=== PATIENT | male | born 1955 | race Caucasian/White ===

== ENCOUNTER 2018-12-31 11:55 | Inpatient (IN) | payer OTHER ==
[~2018-12-31] VITALS: Ht 167.6 cm; Wt 60.0 kg
[~2018-12-31 11:55] MED LIST: ACET325T33 PO; FOLI-49 PO; METO25TA4 PO; MULT-552 PO; THIA50TA10 PO
[2018-12-31 12:07] VITALS: Ht 167.6 cm; Wt 60.0 kg
--- NOTE | 2018-12-31 14:12 | ERD ---
ER Documentation Chief Complaint Chief Complaint Bilaterial hip x 2 months worse today can't walk. HPI 63-year-old male presents the emergency department by paramedics complaining of generalized weakness. Patient states that for the last 2 months, he has been unable to take care of himself. He was initially living on the streets but then was placed by the police into a motel. While in the motel, he states he has been unable to walk and has been crawling on the floor unable to care for himself. He does admit to drinking alcohol. He denies any other drug use. He states at this time has been too weak to even take care of himself and the paramedics were called. 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 Pre-hospital vital signs were reviewed. Pre-hospital diagnostic tests were reviewed. Upon arrival patient has no fevers or other complaints at this time. ROS All systems reviewed and are negative except as per history of present illness. Medications Home Meds Discontinued Reported Medications Acetaminophen* (Tylenol*) 325 Mg Tablet, 650 MG PO Q6 PRN for PAIN AND OR ELEVATED TEMP, TAB 15 Thiamine* (Vitamin B-1*) 50 Mg Tablet, 50 MG PO DAILY, TAB //15 Multivitamins* (Once Daily*) 1 Tab Tablet, 1 TAB PO DAILY, TAB 15 Metoprolol Tartrate* (Lopressor*) 25 Mg Tablet, 25 MG PO BID, TAB //15 Folic Acid* (Folic Acid*) 1 Mg Tablet, 1 MG PO DAILY, TAB 15 Allergies Allergies: Coded Allergies: No Known Allergy (Unverified , 12/31/18) PMhx/Soc History of Surgery: Yes (bilat hip sx left y0mvmbc/right x1mnth) Anesthesia Reaction: No Hx Neurological Disorder: Yes ("I had 3 strokes") Hx Respiratory Disorders: No Hx Cardiac Disorders: Yes (htn) Hx Psychiatric Problems: No Hx Miscellaneous Medical Probl: Yes (C spine fracture, cirrhosis of the liver) Hx Alcohol Use: Yes (beer 45min [employer]; Drinks occassionally) Hx Substance Use: No (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 Physical Exam Vitals Vital Signs Date Temp Pulse Resp B/P (MAP) Pulse Ox O2 O2 Flow FiO2 Time Delivery Rate 12/31/18 98.4 95 18 148/97 98 Room Air 13:38 (114) 12/31/18 98.4 91 18 126/86 97 12:07 (99) Physical Exam GENERAL: Disheveled male in no acute distress HEENT: Pupils equal, round, and reactive to light. EOMI. There is no scleral icterus. NECK: C-spine is soft and supple, there is no meningismus. There is no cervical lymphadenopathy. LUNGS: Clear to auscultation bilaterally. There are no rales, wheezes or rhonchi . HEART: Regular rate and rhythm, no murmurs, clicks, rubs or gallops. ABDOMEN: Soft, non-tender, non-distended. There are bowel sounds in all four quadrants. No rebound or guarding. EXTREMITIES: There is no peripheral cyanosis or edema. No focal swelling or erythema. NEURO: The patient moves all four extremities with 5/5 strength. Cranial nerves II - XII are intact. Normal gait. Alert and oriented SKIN: There is no apparent rash or petechiae. HEME/LYMPHATIC: There is no evidence of excessive bruising or lymphedema. PSYCHIATRIC: Patient appears anxious. No agitation. Result Diagram: 12/31/18 1220 12/31/18 1220 Results 24 hrs Laboratory Tests Test 12/31/18 12:20 White Blood Count 1.4 10^3/ul Red Blood Count 4.26 10^6/ul Hemoglobin 13.0 g/dl Hematocrit 38.1 % Mean Corpuscular Volume 89.4 fl Mean Corpuscular Hemoglobin 30.5 pg Mean Corpuscular Hemoglobin Concent 34.1 g/dl Red Cell Distribution Width 18.0 % Platelet Count 34 10^3/UL Mean Platelet Volume 9.7 fl Immature Granulocytes % 0.700 % Neutrophils % % Lymphocytes % % Monocytes % % Eosinophils % % Basophils % % Nucleated Red Blood Cells % 0.0 /100WBC Immature Granulocytes # 0.010 10^3/ul Neutrophils # 10^3/ul Lymphocytes # 10^3/ul Monocytes # 10^3/ul Eosinophils # 10^3/ul Basophils # 10^3/ul Nucleated Red Blood Cells # 10^3/ul Sodium Level 137 mmol/L Potassium Level 3.3 mmol/L Chloride Level 100 mmol/L Carbon Dioxide Level 26 mmol/L Anion Gap 11 Blood Urea Nitrogen 6 mg/dl Creatinine 0.51 mg/dl Est Glomerular Filtrat Rate mL/min > 60 mL/min Glucose Level 90 mg/dl Calcium Level 8.8 mg/dl Total Bilirubin 1.5 mg/dl Direct Bilirubin 0.00 mg/dl Indirect Bilirubin 1.5 mg/dl Aspartate Amino Transf (AST/SGOT) 320 IU/L Alanine Aminotransferase (ALT/SGPT) 158 IU/L Alkaline Phosphatase 118 IU/L Total Protein 6.7 g/dl Albumin 3.6 g/dl Globulin 3.10 g/dl Albumin/Globulin Ratio 1.16 Ethyl Alcohol Level 124.0 mg/dl Procedures/MDM Patient was taken to a room, seen and evaluated. Comfort measures were initia raymond. Diagnostic tests were ordered and reviewed. RADIOLOGY: Reviewed with the radiologist CONSULTATION: Hospitalist was notified for admission REEVALUATION: 1400: Patient remained hemodynamic is stable in the emergency department. MEDICAL DECISION MAKIN-year-old male presents to the emergency department with generalized weakness. His weakness seems related to chronic alcoholism and unable to care for himself. At this time, there is no snf available or fdc available for which to place the patient. As he is unable to care for himself, especially in light of his significantly comorbid conditions including his pancytopenia, his alcoholism, he will require admission to the hospital for observation, case management and placement. Departure Diagnosis: Primary Impression: ETOH abuse Additional Impression: Weakness Condition: Fair HERMESSHANE Dec 31, 2018 14:12
--- NOTE | 2018-12-31 15:28 | HP ---
Date/Time of Note Date/Time of Note DATE: 12/31/18 TIME: 15:28 Assessment/Plan VTE Prophylaxis Pharmacological prophylaxis: NA/contraindicated Pharm contraindication: liver dx, thrombocytopenia Lines/Catheters [facility] Saline Lock Assessment/Plan Hospital Course 63-year-old male with comorbidities including hypertension, alcoholism, chronic back pain, chronic bilateral hip pain, and nicotine use. The patient was brought in by paramedics from the streets because of difficulty in ambulation. The patient will be admitted to inpatient setting for further treatment and evaluation. 1. Chronic back and bilateral lower extremity pain with difficulty in ambulation -Provide adequate pain control. -Obtain physical therapy evaluation. -Fall precautions. 2. Hypertension. -Start antihypertensives. 3. Pancytopenia. -Most probably secondary to underlying liver cirrhosis from alcoholic liver disease. 4. Transaminitis with hyperbilirubinemia. -Most probably secondary to underlying alcoholic liver cirrhosis. -Obtain hepatitis panel. 5. Failure to thrive. -Obtain physical therapy evaluation. -merchandise worker evaluation. 6. Alcohol intoxication. -Start the patient on multivitamins. -Will start the patient on scheduled Librium along with as needed IV Ativan for any active DTs. 7. Nicotine use. -Smokes 5 cigarettes/day. -Cessation advised. 8. Homelessness. -merchandise worker evaluation. Plan: The patient will be admitted to inpatient medical surgical floor. The patient will be started on a regular diet. The patient will be started on DVT prophylaxis (B/L SCDs) . The patient will remain a full code. Activities will be with assist. The rest of the patient's management will be based on the clinical course and the results of diagnostic studies. Based on the patient's clinical presentation, he most probably requires at least 2 midnights' stay for further management and evaluation of his clinical presentation. The patient was seen in collaboration with Dr. Negron. Result Diagram: 12/31/18 1220 12/31/18 1220 Results 24hrs Laboratory Tests Test 12/31/18 12:20 White Blood Count 1.4 #L Red Blood Count 4.26 L Hemoglobin 13.0 L Hematocrit 38.1 L Mean Corpuscular Volume 89.4 Mean Corpuscular Hemoglobin 30.5 Mean Corpuscular Hemoglobin Concent 34.1 Red Cell Distribution Width 18.0 H Platelet Count 34 L Mean Platelet Volume 9.7 Immature Granulocytes % 0.700 H Neutrophils % Segmented Neutrophils % (Manual) 36 L Band Neutrophils % (Manual) 3 Lymphocytes % Lymphocytes % (Manual) 40 Reactive Lymphocytes % (Manual) 5 H Monocytes % Monocytes % (Manual) 10 Eosinophils % Eosinophils % (Manual) 5 Basophils % Myelocytes % (Manual) 1 H Nucleated Red Blood Cells % 0.0 Immature Granulocytes # 0.010 Neutrophils # Neutrophils # (Manual) 0.5 L Band Neutrophils # 0.0 Lymphocytes (Manual) 0.5 L Lymphocytes # Reactive Lymphocytes # 0.0 Monocytes # Monocytes # (Manual) 0.1 L Eosinophils # Basophils # Myelocytes # 0.0 Nucleated Red Blood Cells # Platelet Estimate SIG DECREASED Polychromasia 1+ Poikilocytosis 2+ Anisocytosis 2+ Ovalocytes 1+ Sodium Level 137 Potassium Level 3.3 L Chloride Level 100 Carbon Dioxide Level 26 Anion Gap 11 Blood Urea Nitrogen 6 L Creatinine 0.51 L Est Glomerular Filtrat Rate mL/min > 60 Glucose Level 90 Calcium Level 8.8 Total Bilirubin 1.5 H Direct Bilirubin 0.00 Indirect Bilirubin 1.5 H Aspartate Amino Transf (AST/SGOT) 320 H Alanine Aminotransferase (ALT/SGPT) 158 H Alkaline Phosphatase 118 Total Protein 6.7 Albumin 3.6 Globulin 3.10 Albumin/Globulin Ratio 1.16 Ethyl Alcohol Level 124.0 H HPI/ROS Admit Date/Time Admit Date/Time Hx of Present Illness Reason for admission: Brought in by paramedics because of bilateral hip pain that is getting worse and inability to walk. This is a 63-year-old male with past medical history of hypertension currently not taking any antihypertensives. The patient verbalized that [id number] to [facility]. He went out of the [id number] to have some food and he lost his way to return back to the [facility]. He kept on walking to go to the nearest emergency room. However, he cannot make it. Therefore, he called the paramedics to bring him to the nearest emergency room. The patient was recently living in a motel for the past 4 days and he ran out of his money. Therefore, he was not eating anything recently. However, he managed to drink 1 can of beer on 12/31/2018. The patient was complaining of rashes on his back and upper chest wall with itching to the rash on the back. The patient denied any fevers, chills, nausea, vomiting, abdominal pain, diarrhea, hematuria, hematochezia, melena. In the emergency room, the patient had a needle alcohol of 124. He also had underlying transaminitis with hyperbi lirubinemia. He was noticed to have underlying pancytopenia. ROS Constitutional: no complaints Eyes: no complaints ENT: no complaints Respiratory: no complaints Cardiovascular: no complaints Gastrointestinal: no complaints Genitourinary: no complaints Musculoskeletal: back pain, bone/joint pain (B/L hip) Skin: rash Neurologic: no complaints Endocrine: no complaints Lymphatic: no complaints Psychological: no complaints Immunologic: no complaints PMH/Family/Social Past Medical History 1. Hypertension. 2. Alcoholism. 3. Chronic back pain. 4. Nicotine use. Coded Allergies: No Known Allergy (Unverified , 12/31/18) Past Surgical History 1. Bilateral hip surgery. 2. Hernia repair. 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 The patient is currently homeless. Alcohol Use: heavy Smoking Status: Current every day smoker Drug Use: none, other (More history of amphetamine abuse.) Exam/Review of Systems Vital Signs Vitals Vital Signs Date Temp Pulse Resp B/P (MAP) Pulse Ox O2 O2 Flow FiO2 Time Delivery Rate 12/31/18 98.4 95 18 148/97 98 Room Air 13:38 (114) Exam Exam General: Adequately build 63 year-old male lying in bed in no apparent distress. HEENT: Normocephalic, atraumatic. Eyes: Anicteric sclerae, conjunctivae red. ENT: Nasal septum midline, oral mucosa moist. Neck supple, no JVD noticed. Respiratory: Bilaterally diminished breath sounds. No use of accessory muscles of respiration. No adventitious breath sounds. Cardiovascular: S1, S2 heard. Regular rate and rhythm. Abdomen: Soft, nontender, and nondistended. Bowel sounds positive in all 4 quadrants. Genitourinary: Deferred. Extremities: No cyanosis, no clubbing, no edema. Peripheral pulses palpable. Neurologic: Cranial nerves II through XII grossly intact. The patient is awake, alert, and oriented. Skin: Normal skin turgor. Clustered erythematous rashes on the upper chest wa ll. Additional Comments CXR IMPRESSION: 1. Cardiomegaly and atherosclerotic disease. 2. Bilateral chronic lung changes. No evidence of acute cardiopulmonary disease. 3. Old fracture deformity of the left clavicle. TOYIN QUACH NP Dec 31, 2018 15:28
[2018-12-31] MEDS ORDERED: ACETAMINOPHEN 325 MG TAB PO PRN (16:00)
[2018-12-31] MEDS ORDERED: LORAZEPAM 2 MG INJ IV PRN (16:00)
[2018-12-31] MEDS ORDERED: NACL 0.9% 3 ML SYG IV SCH (16:00)
[2018-12-31 20:00] VITALS: BP 157/88; PULSE 93; RESP 18
[2018-12-31] MEDS: LOSARTAN 25 MG TAB PO SCH (21:02)
[2018-12-31] MEDS: CHLORDIAZEPOXIDE 25 MG CAP PO SCH (21:02)
[2018-12-31] MEDS: ONDANSETRON 4 MG INJ IV PRN (23:17)
[2019-01-01 02:00] VITALS: BP 149/86; PULSE 98; RESP 18
[2019-01-01] MEDS ORDERED: DIPHENHYDRAMINE 50 MG CAP PO ONE (04:00)
--- NOTE | 2019-01-01 06:06 | PN ---
Date/Time of Note Date/Time of Note DATE: 01/01/19 TIME: 06:02 Assessment/Plan VTE Prophylaxis SCD contraindicated: other Pharmacological prophylaxis: NA/contraindicated Pharm contraindication: liver dx, thrombocytopenia Lines/Catheters IV [facility] Peripheral IV Urinary Cath still in place: No Assessment/Plan Hospital Course SUBJECTIVE: Complains of significant itching of the skin rashes. OBJECTIVE: Physical Exam General: Adequately build 63 year-old male lying in bed in no apparent distress. HEENT: Normocephalic, atraumatic. Eyes: Anicteric sclerae, conjunctivae red. ENT: Nasal septum midline, oral mucosa moist. Neck supple, no JVD noticed. Respiratory: Bilaterally diminished breath sounds. No use of accessory muscles of respiration. No adventitious breath sounds. Cardiovascular: S1, S2 heard. Regular rate and rhythm. Abdomen: Soft, nontender, and nondistended. Bowel sounds positive in all 4 quadrants. Genitourinary: Deferred. Extremities: No cyanosis, no clubbing, no edema. Peripheral pulses palpable. Neurologic: Cranial nerves II through XII grossly intact. The patient is awake, alert, and oriented. Skin: Normal skin turgor. Clustered erythematous rashes on the upper chest wall. Labs & Vitals per chart ASSESSMENT & PLAN 63-year-old male with comorbidities including hypertension, alcoholism, chronic back pain, chronic bilateral hip pain, and nicotine use. The patient was brought in by paramedics from the streets because of difficulty in ambulation. The patient was admitted to inpatient setting for further treatment and evaluation. 1. Chronic back and bilateral lower extremity pain with difficulty in ambulation -Provide adequate pain control. -Obtain physical therapy evaluation. -Fall precautions. 2. Hypertension. -Continue antihypertensives. 3. Pancytopenia. -Most probably secondary to underlying liver cirrhosis from alcoholic liver disease. 4. Transaminitis with hyperbilirubinemia. -Most probably secondary to underlying alcoholic liver cirrhosis. -Hepatitis panel pending. 5. Failure to thrive. -Obtain physical therapy evaluation. -logging worker evaluation. 6. Alcohol intoxication. -Continue the patient on multivitamins. -Continue the patient on scheduled Librium along with as needed IV Ativan for any active DTs. 7. Nicotine use. -Smokes 5 cigarettes/day. -Cessation advised. 8. Homelessness. -logging worker evaluation. 9. Fluids, electrolytes, and nutrition. -Regular diet. 10. DVT prophylaxis -Chemical DVT prophylaxis contraindicated because of underlying pancytopenia. 11. Plan. -Continue supportive care. -Monitor for alcohol withdrawal. -Await physical therapy evaluation. The patient was seen in collaboration with Dr. Negron. Result Diagram: 01/01/19 0512 12/31/18 1220 Results 24hrs Laboratory Tests Test 12/31/18 12:20 01/01/19 05:12 01/01/19 05:13 White Blood Count 1.4 #L 1.4 L Red Blood Count 4.26 L 4.12 L Hemoglobin 13.0 L 12.7 L Hematocrit 38.1 L 37.1 L Mean Corpuscular Volume 89.4 90.0 Mean Corpuscular Hemoglobin 30.5 30.8 Mean Corpuscular 34.1 34.2 Hemoglobin Concent Red Cell Distribution Width 18.0 H 18.3 H Platelet Count 34 L 33 L Mean Platelet Volume 9.7 11.1 H Immature Granulocytes % 0.700 H 0.000 L Neutrophils % 42.1 Segmented Neutrophils % (Manual) 36 L Band Neutrophils % (Manual) 3 Lymphocytes % 40.7 Lymphocytes % (Manual) 40 Reactive Lymphocytes % (Manual) 5 H Monocytes % 14.3 H Monocytes % (Manual) 10 Eosinophils % 2.9 Eosinophils % (Manual) 5 Basophils % 0.0 Myelocytes % (Manual) 1 H Nucleated Red Blood Cells % 0.0 0.0 Immature Granulocytes # 0.010 0.000 Neutrophils # 0.6 L Neutrophils # (Manual) 0.5 L Band Neutrophils # 0.0 Lymphocytes (Manual) 0.5 L Lymphocytes # 0.6 L Reactive Lymphocytes # 0.0 Monocytes # 0.2 L Monocytes # (Manual) 0.1 L Eosinophils # 0.0 Basophils # 0.0 Myelocytes # 0.0 Nucleated Red Blood Cells # 0.0 Platelet Estimate SIG DECREASED Polychromasia 1+ Poikilocytosis 2+ Anisocytosis 2+ Ovalocytes 1+ Urine Color YELLOW Urine Clarity CLEAR Urine pH 6.0 Urine Specific [place] 1.004 Urine Ketones NEGATIVE Urine Nitrite NEGATIVE Urine Bilirubin NEGATIVE Urine Urobilinogen 1+ H Urine Leukocyte Esterase NEGATIVE Urine Microscopic RBC 1 Urine Microscopic WBC 0 Urine Hemoglobin 1+ H Urine Glucose NEGATIVE Urine Total Protein NEGATIVE Sodium Level 137 Potassium Level 3.3 L Chloride Level 100 Carbon Dioxide Level 26 Anion Gap 11 Blood Urea Nitrogen 6 L Creatinine 0.51 L Est Glomerular Filtrat > 60 Rate mL/min Glucose Level 90 Hemoglobin A1c 4.6 Calcium Level 8.8 Total Bilirubin 1.5 H Direct Bilirubin 0.00 Indirect Bilirubin 1.5 H Aspartate Amino Transf (AST/SGOT) 320 H Alanine 158 H Aminotransferase (ALT/SGPT) Alkaline Phosphatase 118 Total Protein 6.7 Albumin 3.6 Globulin 3.10 Albumin/Globulin Ratio 1.16 Urine Opiates Screen Negative Urine Barbiturates Negative Urine Amphetamines Screen Negative Urine Benzodiazepines Screen Negative Urine Cocaine Screen Negative Urine Cannabinoids Negative Ethyl Alcohol Level 124.0 H Hepatitis B Surface Antigen Pending Hepatitis B Core Total Antibody Pending Hepatitis C Antibody Pending HIV (1&2) Antibody Pending Exam/Review of Systems Exam Vitals Vital Signs Date Temp Pulse Resp B/P (MAP) Pulse Ox O2 O2 Flow FiO2 Time Delivery Rate 01/01/19 98.5 98 18 149/86 93 02:00 (107) 12/31/18 Room Air 18:12 Intake and Output 12/31/18 12/31/18 01/01/19 1515:00 23:00 07:00 OutputOutput Total 680 ml BalanceBalance -680 ml Results Results 24hrs Laboratory Tests Test 12/31/18 12:20 01/01/19 05:12 01/01/19 05:13 White Blood Count 1.4 #L 1.4 L Red Blood Count 4.26 L 4.12 L Hemoglobin 13.0 L 12.7 L Hematocrit 38.1 L 37.1 L Mean Corpuscular Volume 89.4 90.0 Mean Corpuscular Hemoglobin 30.5 30.8 Mean Corpuscular 34.1 34.2 Hemoglobin Concent Red Cell Distribution Width 18.0 H 18.3 H Platelet Count 34 L 33 L Mean Platelet Volume 9.7 11.1 H Immature Granulocytes % 0.700 H 0.000 L Neutrophils % 42.1 Segmented Neutrophils % (Manual) 36 L Band Neutrophils % (Manual) 3 Lymphocytes % 40.7 Lymphocytes % (Manual) 40 Reactive Lymphocytes % (Manual) 5 H Monocytes % 14.3 H Monocytes % (Manual) 10 Eosinophils % 2.9 Eosinophils % (Manual) 5 Basophils % 0.0 Myelocytes % (Manual) 1 H Nucleated Red Blood Cells % 0.0 0.0 Immature Granulocytes # 0.010 0.000 Neutrophils # 0.6 L Neutrophils # (Manual) 0.5 L Band Neutrophils # 0.0 Lymphocytes (Manual) 0.5 L Lymphocytes # 0.6 L Reactive Lymphocytes # 0.0 Monocytes # 0.2 L Monocytes # (Manual) 0.1 L Eosinophils # 0.0 Basophils # 0.0 Myelocytes # 0.0 Nucleated Red Blood Cells # 0.0 Platelet Estimate SIG DECREASED Polychromasia 1+ Poikilocytosis 2+ Anisocytosis 2+ Ovalocytes 1+ Urine Color YELLOW Urine Clarity CLEAR Urine pH 6.0 Urine Specific [place] 1.004 Urine Ketones NEGATIVE Urine Nitrite NEGATIVE Urine Bilirubin NEGATIVE Urine Urobilinogen 1+ H Urine Leukocyte Esterase NEGATIVE Urine Microscopic RBC 1 Urine Microscopic WBC 0 Urine Hemoglobin 1+ H Urine Glucose NEGATIVE Urine Total Protein NEGATIVE Sodium Level 137 Potassium Level 3.3 L Chloride Level 100 Carbon Dioxide Level 26 Anion Gap 11 Blood Urea Nitrogen 6 L Creatinine 0.51 L Est Glomerular Filtrat > 60 Rate mL/min Glucose Level 90 Hemoglobin A1c 4.6 Calcium Level 8.8 Total Bilirubin 1.5 H Direct Bilirubin 0.00 Indirect Bilirubin 1.5 H Aspartate Amino Transf (AST/SGOT) 320 H Alanine 158 H Aminotransferase (ALT/SGPT) Alkaline Phosphatase 118 Total Protein 6.7 Albumin 3.6 Globulin 3.10 Albumin/Globulin Ratio 1.16 Urine Opiates Screen Negative Urine Barbiturates Negative Urine Amphetamines Screen Negative Urine Benzodiazepines Screen Negative Urine Cocaine Screen Negative Urine Cannabinoids Negative Ethyl Alcohol Level 124.0 H Hepatitis B Surface Antigen Pending Hepatitis B Core Total Antibody Pending Hepatitis C Antibody Pending HIV (1&2) Antibody Pending Medications Medication Current Medications IV Flush (NS 3 ml) 3 ml PER PROTOCOL IV ; Start 12/31/18 at 16:00 Ondansetron HCl (Zofran Inj) 4 mg Q6H PRN IV NAUSEA/VOMITING Last administered on 12/31/18at 23:17; Admin Dose 4 MG; Start 12/31/18 at 16:00 Acetaminophen (Tylenol Tab) 650 mg Q6H PRN PO .PAIN 1-3 OR TEMP; Start 12/31/18 at 16:00 Acetaminophen/ Hydrocodone Bitart ([place] (5/325)) 1 tab Q6H PRN PO .MOD PAIN 4- 6; Start 12/31/18 at 16:00 Losartan Potassium (Cozaar) 25 mg BID PO Last administered on 12/31/18at 21:02; Admin Dose 25 MG; Start 12/31/18 at 21:00 Chlordiazepoxide (Librium) 25 mg TID PO Last administered on 12/31/18at 21:02; Admin Dose 25 MG; Start 12/31/18 at 21:00 Lorazepam (Ativan) 1 mg Q2H PRN IV Alcholol withdrawal delirium; Start 12/31/18 at 16:00 Thiamine HCl (Vitamin B1) 100 mg DAILY PO ; Start 01/01/19 at 09:00 Multivitamins Therapeutic (Theragran) 1 tab DAILY PO ; Start 01/01/19 at 09:00 Folic Acid (Folic Acid) 1 mg DAILY PO ; Start 01/01/19 at 09:00 Influenza Virus Vaccine Quadrival (Fluzone) 0.5 ml ONCE ONCE IM* ; Start 01/02/19 at 10:00; Stop 01/02/19 at 10:01 Hydrocortisone (Hydrocortisone 1% Cr) 1 applic BID TOP ; Start 01/01/19 at 09:00 TOYIN QUACH NP Jan 01, 2019 06:06
[2019-01-01 08:13] VITALS: BP 133/78; PULSE 98; RESP 18
[2019-01-01] MEDS: FOLIC ACID 1 MG TAB PO SCH (08:36)
[2019-01-01] MEDS: CHLORDIAZEPOXIDE 25 MG CAP PO SCH ×3 (08:38→22:05)
[2019-01-01] MEDS: MULTIVITAMINS THERAPEUTIC TAB PO SCH (08:38)
[2019-01-01] MEDS: THIAMINE 100 MG TAB PO SCH (08:38)
[2019-01-01] MEDS: LOSARTAN 25 MG TAB PO SCH ×2 (08:38→22:06)
[2019-01-01] MEDS: DIPHENHYDRAMINE 25 MG CAP PO PRN (09:27)
[2019-01-01] MEDS: HYDROCORTISONE 1% 28 GM CR TOP SCH ×2 (10:11→23:03)
[2019-01-01] MEDS: HYDROCODONE/APAP (5/325) TAB PO PRN (13:07)
[2019-01-01 14:55] VITALS: BP 128/70; PULSE 91; RESP 21
[2019-01-01 20:00] VITALS: BP 120/66; PULSE 79; RESP 18
[2019-01-02 02:00] VITALS: BP 140/83; PULSE 92; RESP 19
[2019-01-02] MEDS: DIPHENHYDRAMINE 25 MG CAP PO PRN (02:43)
[2019-01-02 08:38] VITALS: BP 135/77; PULSE 85; RESP 19
[2019-01-02] MEDS: CHLORDIAZEPOXIDE 25 MG CAP PO SCH ×3 (08:54→20:55)
[2019-01-02] MEDS: MULTIVITAMINS THERAPEUTIC TAB PO SCH (08:54)
[2019-01-02] MEDS: LOSARTAN 25 MG TAB PO SCH ×2 (08:54→20:56)
[2019-01-02] MEDS: FOLIC ACID 1 MG TAB PO SCH (08:54)
[2019-01-02] MEDS: THIAMINE 100 MG TAB PO SCH (08:54)
[2019-01-02] MEDS: HYDROCODONE/APAP (5/325) TAB PO PRN (08:55)
[2019-01-02] MEDS: HYDROCORTISONE 1% 28 GM CR TOP SCH ×2 (08:55→21:01)
[2019-01-02] MEDS: CALCIUM CARBONATE 500 MG CHEW TAB PO PRN (10:02)
--- NOTE | 2019-01-02 14:47 | PN ---
Date/Time of Note Date/Time of Note DATE: 01/02/19 TIME: 14:44 Assessment/Plan VTE Prophylaxis Risk score (from Ns)>0 risk: 3 SCD applied (from Ns): Yes Pharmacological prophylaxis: NA/contraindicated Pharm contraindication: blood coag disorder Lines/Catheters IV Catheter Type (from Nrs): Saline Lock Urinary Cath still in place: No Assessment/Plan Hospital Course Assessment and plan 1. Back leg pain, possibly due to acute back strain, stable observed. Continue PT check LS spine 2. Chronic alcoholism acute on chronic, mod stable continue thiamine 3. Failure to thrive, homeless consider placement 4. Major depression 5. Tobacco abuse 6. Abnormal LFTs, consider imaging. Likely chronic liver disease sequela 7. Chronic liver disease sequela with pancytopenia possible coagulopathy 8. COPD? 9. Hypertension 10. Itching rash possibly due to hyperbilirubinemia no evidence of infestation Subjective: Events noted Objective: Vital signs stable Physical exam No pallor icterus adenopathy Regular Clear Benign No edema; slr >30 bilat; symm reflexes Result Diagram: 01/02/1952201/02/19 0523 Results 24hrs Laboratory Tests Test 01/02/19 05:23 White Blood Count 1.6 L Red Blood Count 4.05 L Hemoglobin 12.4 L Hematocrit 37.3 L Mean Corpuscular Volume 92.1 Mean Corpuscular Hemoglobin 30.6 Mean Corpuscular Hemoglobin Concent 33.2 Red Cell Distribution Width 18.4 H Platelet Count 38 L Mean Platelet Volume 9.9 Immature Granulocytes % 0.600 H Neutrophils % 36.7 L Lymphocytes % 43.7 Monocytes % 15.8 H Eosinophils % 3.2 Basophils % 0.0 Nucleated Red Blood Cells % 0.0 Immature Granulocytes # 0.010 Neutrophils # 0.6 L Lymphocytes # 0.7 L Monocytes # 0.3 Eosinophils # 0.1 Basophils # 0.0 Nucleated Red Blood Cells # 0.0 Sodium Level 139 Potassium Level 4.2 Chloride Level 104 Carbon Dioxide Level 29 Anion Gap 6 Blood Urea Nitrogen 15 Creatinine 0.51 L Est Glomerular Filtrat Rate mL/min > 60 Glucose Level 96 Calcium Level 9.0 Phosphorus Level 3.3 Magnesium Level 1.7 Exam/Review of Systems Exam Vitals Vital Signs Date Temp Pulse Resp B/P (MAP) Pulse Ox O2 O2 Flow FiO2 Time Delivery Rate 01/02/19 98.8 85 19 135/77 93 08:38 (96) 12/31/18 Room Air 18:12 Intake and Output 01/01/19 01/01/19 01/02/19 1515:00 23:00 07:00 IntakeIntake Total 480 ml 240 ml OutputOutput Total 450 ml 600 ml BalanceBalance 30 ml 240 ml -600 ml Results Results 24hrs Laboratory Tests Test 01/02/19 05:23 White Blood Count 1.6 L Red Blood Count 4.05 L Hemoglobin 12.4 L Hematocrit 37.3 L Mean Corpuscular Volume 92.1 Mean Corpuscular Hemoglobin 30.6 Mean Corpuscular Hemoglobin Concent 33.2 Red Cell Distribution Width 18.4 H Platelet Count 38 L Mean Platelet Volume 9.9 Immature Granulocytes % 0.600 H Neutrophils % 36.7 L Lymphocytes % 43.7 Monocytes % 15.8 H Eosinophils % 3.2 Basophils % 0.0 Nucleated Red Blood Cells % 0.0 Immature Granulocytes # 0.010 Neutrophils # 0.6 L Lymphocytes # 0.7 L Monocytes # 0.3 Eosinophils # 0.1 Basophils # 0.0 Nucleated Red Blood Cells # 0.0 Sodium Level 139 Potassium Level 4.2 Chloride Level 104 Carbon Dioxide Level 29 Anion Gap 6 Blood Urea Nitrogen 15 Creatinine 0.51 L Est Glomerular Filtrat Rate mL/min > 60 Glucose Level 96 Calcium Level 9.0 Phosphorus Level 3.3 Magnesium Level 1.7 Medications Medication Current Medications IV Flush (NS 3 ml) 3 ml PER PROTOCOL IV ; Start 12/31/18 at 16:00 Ondansetron HCl (Zofran Inj) 4 mg Q6H PRN IV NAUSEA/VOMITING Last administered on 12/31/18at 23:17; Admin Dose 4 MG; Start 12/31/18 at 16:00 Acetaminophen (Tylenol Tab) 650 mg Q6H PRN PO .PAIN 1-3 OR TEMP; Start 12/31/18 at 16:00 Acetaminophen/ Hydrocodone Bitart ([place] (5/325)) 1 tab Q6H PRN PO .MOD PAIN 4- 6 Last administered on 01/02/19at 08:55; Admin Dose 1 TAB; Start 12/31/18 at 16:00 Losartan Potassium (Cozaar) 25 mg BID PO Last administered on 01/02/19at 08:54; Admin Dose 25 MG; Start 12/31/18 at 21:00 Chlordiazepoxide (Librium) 25 mg TID PO Last administered on 01/02/19 13:32; Admin Dose 25 MG; Start 12/31/18 at 21:00 Lorazepam (Ativan) 1 mg Q2H PRN IV Alcholol withdrawal delirium; Start 12/31/18 at 16:00 Thiamine HCl (Vitamin B1) 100 mg DAILY PO Last administered on 01/02/19 08:54; Admin Dose 100 MG; Start 01/01/19 at 09:00 Multivitamins Therapeutic (Theragran) 1 tab DAILY PO Last administered on 01/02/19 08:54; Admin Dose 1 TAB; Start 01/01/19 at 09:00 Folic Acid (Folic Acid) 1 mg DAILY PO Last administered on 01/02/19 08:54; Admin Dose 1 MG; Start 01/01/19 at 09:00 Hydrocortisone (Hydrocortisone 1% Cr) 1 applic BID TOP Last administered on 01/02/19 08:55; Admin Dose 1 APPLIC; Start 01/01/19 at 09:00 Diphenhydramine HCl (Benadryl) 25 mg Q6H PRN PO ITCHING Last administered on 01/02/19 02:43; Admin Dose 25 MG; Start 01/01/19 at 09:00 Calcium Carbonate (Tums) 500 mg Q6H PRN PO HEARTBURN Last administered on 01/02/19 10:02; Admin Dose 500 MG; Start 01/02/19 at 10:00 DHAVAL REYNOSO MD Jan 02, 2019 14:47
[2019-01-02 14:56] VITALS: BP 126/77; PULSE 94; RESP 18
[2019-01-02] MEDS ORDERED: DIPHENHYDRAMINE 50 MG CAP PO PRN (15:00)
[2019-01-02] MEDS ORDERED: DOCUSATE SODIUM 100 MG CAP PO PRN (15:00)
[2019-01-02 20:50] VITALS: BP 134/72; PULSE 84; RESP 18
[2019-01-02] MEDS: FAMOTIDINE 20 MG TAB PO SCH (20:56)
[2019-01-03 02:00] VITALS: BP 130/70; PULSE 81; RESP 18
[2019-01-03 07:00] VITALS: BP 120/74; PULSE 100; RESP 18
[2019-01-03] MEDS: THIAMINE 100 MG TAB PO SCH (09:59)
[2019-01-03] MEDS: CHLORDIAZEPOXIDE 25 MG CAP PO SCH ×3 (09:59→20:42)
[2019-01-03] MEDS: MULTIVITAMINS THERAPEUTIC TAB PO SCH (09:59)
[2019-01-03] MEDS: LOSARTAN 25 MG TAB PO SCH ×2 (09:59→20:42)
[2019-01-03] MEDS: FOLIC ACID 1 MG TAB PO SCH (09:59)
[2019-01-03] MEDS: HYDROCORTISONE 1% 28 GM CR TOP SCH ×2 (10:00→20:42)
--- NOTE | 2019-01-03 10:09 | PDOCDIS ---
Discharge Instructions CONDITION [id number] Patient Condition: [id number] Stable HOME CARE INSTRUCTIONS: [id number] Diet Instructions: [id number] Regular ACTIVITY: [id number] Activity Restrictions: [id number] Slowly Increase Activity Avoid heavy lifting Do not Drive FOLLOW UP/APPOINTMENTS Follow-up Plan appt primary 1wk DHAVAL REYNOSO MD Jan 03, 2019 10:09
--- NOTE | 2019-01-03 10:09 | DS ---
Date/Time of Note Date/Time of Note DATE: 01/03/19 TIME: 10:05 Discharge Summary Admission/Discharge Info Admit Date/Time Jan 01, 2019 at 09:32 Discharge Date/Time Patient Condition: Stable Procedures MRI LS Spine IMPRESSION: 1. Degenerative changes as above. 2. Minimal levorotatory scoliosis lumbar spine. 3. Old compression fractures L1-L2 L3 and L4 vertebral levels. No acute fractures or subluxations. 4. Osteopenia. Hx of Present Illness 63-year-old gentleman admitted with back pain Hospital Course Hospitalist coverage/hospital course -Admitted and evaluated for back leg pain. Probably due to acute back strain. Imaging showing old L4 fracture. For completion sake an MRI can be done here or as an outpatient. In the meantime conservative care with PT and pain control. Patient is stable and fit for discharge to [facility] if he agrees otherwise home with outpatient therapy. He was counseled regarding alcoholism. Recommend outpatient referral if feasible to GI to discuss potential cirrhosis/chronic liver disease sequelae. Prognosis challenging 1. Back leg pain, possibly due to acute back strain, stable observed. Continue PT 2. Chronic alcoholism acute on chronic, mod stable continue thiamin 3. Failure to thrive, homeless consider placement. May have a [facility] or sniff in [place] that may accept him 4. Major depression 5. Tobacco abuse 6. Abnormal LFTs, consider imaging/ultrasound down the line. Likely chronic liver disease sequela 7. Chronic liver disease sequela with pancytopenia possible coagulopathy 8. COPD? 9. Hypertension 10. Itching rash possibly due to hyperbilirubinemia no evidence of infestation scabies pathology negative 11. L4 compression fracture subacute. Continue supportive care. Subjective: 01/02 events noted 01/03: No events. No fever or incontinence. Objective: Vital signs stable Physical exam No pallor icterus Regular Clear Benign No edema; slr >30 bilat; symm reflexes Home Meds Discontinued Reported Medications Acetaminophen* (Tylenol*) 325 Mg Tablet, 650 MG PO Q6 PRN for PAIN AND OR ELEVATED TEMP, TAB 6/03/22 Thiamine* (Vitamin B-1*) 50 Mg Tablet, 50 MG PO DAILY, TAB 6//15 Multivitamins* (Once Daily*) 1 Tab Tablet, 1 TAB PO DAILY, TAB 04/12/15 Metoprolol Tartrate* (Lopressor*) 25 Mg Tablet, 25 MG PO BID, TAB 04/12/15 Folic Acid* (Folic Acid*) 1 Mg Tablet, 1 MG PO DAILY, TAB 04/12/15 Primary Care Provider Not On Staff Doctor Time spent on discharge: > 30 minutes Pending Labs Laboratory Tests Test 01/03/19 05:39 White Blood Count 1.5 10^3/ul (4.8-10.8) Red Blood Count 4.11 10^6/ul (4.70-6.10) Hemoglobin 12.5 g/dl (14.0-18.0) Hematocrit 38.1 % (42.0-52.0) Mean Corpuscular Volume 92.7 fl (82.0-101.0) Mean Corpuscular Hemoglobin 30.4 pg (29.0-33.0) Mean Corpuscular Hemoglobin Concent 32.8 g/dl (32.0-37.0) Red Cell Distribution Width 17.9 % (11.5-14.5) Platelet Count 42 10^3/UL (140-415) Mean Platelet Volume 9.2 fl (7.4-10.4) Immature Granulocytes % 0.700 % (0.001-0.429) Neutrophils % 38.4 % (39.0-77.0) Lymphocytes % 39.1 % (15.0-51.0) Monocytes % 18.5 % (0.0-11.0) Eosinophils % 3.3 % (0.0-7.0) Basophils % 0.0 % (0.0-2.0) Nucleated Red Blood Cells % 0.0 /100WBC (0.0-0.0) Immature Granulocytes # 0.010 10^3/ul (0.0-0.031) Neutrophils # 0.6 10^3/ul (1.6-7.5) Lymphocytes # 0.6 10^3/ul (0.8-2.9) Monocytes # 0.3 10^3/ul (0.3-0.9) Eosinophils # 0.1 10^3/ul (0.0-0.5) Basophils # 0.0 10^3/ul (0.0-0.1) Nucleated Red Blood Cells # 0.0 10^3/ul (0.0-0.0) Sodium Level 137 mmol/L (135-144) Potassium Level 4.0 mmol/L (3.5-5.1) Chloride Level 104 mmol/L (97-110) Carbon Dioxide Level 25 mmol/L (21-31) Anion Gap 8 (5-13) Blood Urea Nitrogen 12 mg/dl (7-20) Creatinine 0.49 mg/dl (0.61-1.24) Est Glomerular Filtrat Rate mL/min > 60 mL/min (>60) Glucose Level 94 mg/dl (70-220) Calcium Level 9.1 mg/dl (8.4-10.2) Total Bilirubin 1.6 mg/dl (0.2-1.3) Direct Bilirubin 0.00 mg/dl (0.00-0.20) Indirect Bilirubin 1.6 mg/dl (0-1.1) Aspartate Amino Transf (AST/SGOT) 119 IU/L (15-46) Alanine Aminotransferase (ALT/SGPT) 94 IU/L (13-69) Alkaline Phosphatase 93 IU/L (42-121) Total Protein 6.0 g/dl (6.1-8.1) Albumin 3.0 g/dl (3.3-4.9) Globulin 3.00 g/dl (1.3-3.2) Albumin/Globulin Ratio 1.00 Alpha Fetoprotein 2.32 IU/L (0.00-7.21) Thyroid Stimulating Hormone (TSH) 1.460 MIU/L (0.465-4.680) DHAVAL REYNOSO MD Jan 03, 2019 10:09
[2019-01-03] MEDS ORDERED: ACET325T33 PO (10:10)
[2019-01-03] MEDS ORDERED: HYDR30CR TOP (10:10)
[2019-01-03 14:00] VITALS: BP 104/52; PULSE 52; RESP 18
[2019-01-03] MEDS: CALCIUM CARBONATE 500 MG CHEW TAB PO PRN (15:12)
[2019-01-03 20:34] VITALS: BP 120/69; PULSE 86; RESP 18
[2019-01-03] MEDS: FAMOTIDINE 20 MG TAB PO SCH (20:42)
[2019-01-03] MEDS: SENNA/DOCUSATE NA (8.6MG/50MG) TAB PO SCH (20:42)
[2019-01-04] MEDS: CALCIUM CARBONATE 500 MG CHEW TAB PO PRN ×3 (00:16→20:14)
[2019-01-04 03:47] VITALS: BP 116/66; PULSE 81; RESP 18
[2019-01-04 08:00] VITALS: BP 129/65; PULSE 90; RESP 20
[2019-01-04] MEDS: MULTIVITAMINS THERAPEUTIC TAB PO SCH (08:50)
[2019-01-04] MEDS: FOLIC ACID 1 MG TAB PO SCH (08:50)
[2019-01-04] MEDS: THIAMINE 100 MG TAB PO SCH (08:50)
[2019-01-04] MEDS: CHLORDIAZEPOXIDE 25 MG CAP PO SCH ×3 (08:50→20:14)
[2019-01-04] MEDS: LOSARTAN 25 MG TAB PO SCH ×2 (08:51→20:16)
[2019-01-04] MEDS: HYDROCORTISONE 1% 28 GM CR TOP SCH ×2 (08:51→20:15)
[2019-01-04 14:00] VITALS: BP 132/64; PULSE 84; RESP 20
--- NOTE | 2019-01-04 16:46 | DS ---
Date/Time of Note Date/Time of Note DATE: 01/04/19 TIME: 16:42 Discharge Summary Admission/Discharge Info Admit Date/Time Jan 01, 2019 at 09:32 Discharge Date/Time Consults Procedures MRI IMPRESSION: 1. Chronic mild to moderate L1, chronic mild to moderate L2, chronic mild L3 vertebral body compression fractures. Acute / recent inferior L3 endplate infraction (fracture) is not excluded. 2. Multilevel bilateral foraminal stenosis impinging the exiting bilateral T12, right L3, bilateral for, and left L5 nerve roots as detailed above. LS Spine IMPRESSION: 1. Degenerative changes as above. 2. Minimal levorotatory scoliosis lumbar spine. 3. Old compression fractures L1-L2 L3 and L4 vertebral levels. No acute fractures or subluxations. 4. Osteopenia. Hx of Present Illness 63-year-old gentleman admitted with back pain Hospital Course Hospitalist coverage/hospital course -Admitted and evaluated for back leg pain. Probably due to acute back strain. Imaging showing old L4 fracture. For completion sake an MRI can be done here or as an outpatient. In the meantime conservative care with PT and pain control. Patient is stable and fit for discharge to [facility] if he agrees otherwise home with outpatient therapy. He was counseled regarding alcoholism. Recommend outpatient referral (if feasible) to GI to discuss potential cirrhosis/chronic liver disease sequelae. Prognosis challenging. Addendum: Discharge to snf. MRI results noted. Patient/snf provided with CD. Outpt NS consult, better if he avoids etoh. A/P 1. Back leg pain/ acute back strain, stable observe. Continue PT @ snf. 2. Chr alcoholism acute on chronic, mod stable continue thiamine. 3. Ftt, homeless consider placement. May have a skilled nursing or snf in [place] that may accept him 4. Major depression 5. Tobacco abuse 6. Abn LFTs, consider imaging/ultrasound down the line. Likely chronic liver dz sequela 7. Chronic liver disease sequela with pancytopenia possible coagulopathy 8. COPD? 9. Hypertension 10. Itching rash possibly due to hyperbilirubinemia no evidence of infestation scabies pathology negative 11. L4 compression fracture subacute. Continue supportive care. Subjective: 01/02 events noted 01/03: No events. No fever or incontinence. 01/04: No events no distress Objective: Vital signs stable Physical exam No pallor icterus Regular Clear Benign No edema; slr >30 bilat; symm reflexes Home Meds Active Scripts Hydrocortisone-Aloe Vera (Hydrocortisone-Aloe Vera) 1% - 30 Gm Cream.gm., 1 APPLIC TOP BID for 14 Days Prov:DHAVAL REYNOSO MD 01/03/19 Acetaminophen* (Tylenol*) 325 Mg Tablet, 650 MG PO Q6H PRN for .PAIN 1-3 OR TEMP for 7 Days, TAB Prov:DHAVAL REYNOSO MD 01/03/19 Discontinued Reported Medications Acetaminophen* (Tylenol*) 325 Mg Tablet, 650 MG PO Q6 PRN for PAIN AND OR ELEVATED TEMP, TAB 04/12/15 Thiamine* (Vitamin B-1*) 50 Mg Tablet, 50 MG PO DAILY, TAB 15 Multivitamins* (Once Daily*) 1 Tab Tablet, 1 TAB PO DAILY, TAB 15 Metoprolol Tartrate* (Lopressor*) 25 Mg Tablet, 25 MG PO BID, TAB 15 Folic Acid* (Folic Acid*) 1 Mg Tablet, 1 MG PO DAILY, TAB 04/12/15 Follow-up Plan appt primary 1wk Primary Care Provider Not On Staff Doctor Time spent on discharge: < 30 minutes DHAVAL REYNOSO MD Jan 04, 2019 16:46
[2019-01-04] MEDS: ONDANSETRON 4 MG INJ IV PRN (18:12)
[2019-01-04] MEDS: FAMOTIDINE 20 MG TAB PO SCH (20:14)
[2019-01-04] MEDS: SENNA/DOCUSATE NA (8.6MG/50MG) TAB PO SCH (20:14)
[2019-01-04 21:33] VITALS: BP 112/60; PULSE 90; RESP 16
[2019-01-05 02:52] VITALS: BP 110/57; PULSE 83; RESP 16
[2019-01-05 07:40] VITALS: BP 118/65; PULSE 94; RESP 18
[2019-01-05] MEDS: MULTIVITAMINS THERAPEUTIC TAB PO SCH (08:13)
[2019-01-05] MEDS: CHLORDIAZEPOXIDE 25 MG CAP PO SCH ×3 (08:13→20:26)
[2019-01-05] MEDS: FOLIC ACID 1 MG TAB PO SCH (08:13)
[2019-01-05] MEDS: THIAMINE 100 MG TAB PO SCH (08:13)
[2019-01-05] MEDS: LOSARTAN 25 MG TAB PO SCH ×2 (08:14→20:26)
[2019-01-05] MEDS: HYDROCORTISONE 1% 28 GM CR TOP SCH ×2 (08:14→20:28)
[2019-01-05] MEDS: CALCIUM CARBONATE 500 MG CHEW TAB PO PRN ×2 (09:12→21:12)
[2019-01-05 14:35] VITALS: BP 91/50; PULSE 98; RESP 16
[2019-01-05] MEDS: SUCRALFATE 1 GM TAB PO SCH ×2 (16:39→20:26)
--- NOTE | 2019-01-05 17:49 | PN ---
Date/Time of Note Date/Time of Note DATE: 01/05/19 TIME: 17:47 Assessment/Plan VTE Prophylaxis Risk score (from Ns)>0 risk: 3 SCD applied (from Ns): Yes SCD contraindicated: low risk/ambulating Pharmacological prophylaxis: NA/contraindicated Pharm contraindication: blood coag disorder Lines/Catheters [facility] Saline Lock Urinary Cath still in place: No Assessment/Plan Hospital Course Hospitalist coverage/hospital course -Admitted and evaluated for back leg pain. Probably due to acute back strain. Imaging showing old L4 fracture. For completion sake an MRI can be done here or as an outpatient. In the meantime conservative care with PT and pain control. Patient is stable and fit for discharge to sniff if he agrees otherwise home with outpatient therapy. He was counseled regarding alcoholism. Recommend outpatient referral (if feasible) to GI to discuss potential cirrhosis/chronic liver disease sequelae. Prognosis challenging. Addendum: Discharge to snf. MRI results noted. Patient/snf provided with CD. Outpt NS consult, better if he avoids etoh. A/P 1. Back leg pain/ acute back strain, stable observe. Cont PT @ snf. 2. Chr alcoholism acute on chronic, mod stable cont thiamine. Possible cerebellar degeneration. 3. Ftt, homeless consider placement. May have a shelter or snf in [place] that may accept him 4. Major depression 5. Tobacco abuse 6. Abn LFTs, consider imaging/ultrasound down the line. Likely chronic liver dz sequela 7. Chronic liver disease sequela, with pancytopenia possible coagulopathy 8. COPD? 9. Hypertension 10. Itching rash possibly due to hyperbilirubinemia no evidence of infestation scabies pathology negative 11. L4 compression fracture subacute. Continue supportive care. Spoke with neurosurgery; plan: Conservative management 12. History of C2 fracture and fusion via secondary healing? Subjective: 01/02 events noted 01/03: No events. No fever or incontinence. 01/04: No events no distress 01/05: No events. Unable to maintain IV access. Pending sniff placement. Objective: Vital signs stable Physical exam No pallor icterus Regular Clear Benign No edema; slr >30 bilat; symm reflexes Result Diagram: 01/03/1939 01/03/1939 Exam/Review of Systems Exam Vitals Vital Signs Date Temp Pulse Resp B/P (MAP) Pulse Ox O2 O2 Flow FiO2 Time Delivery Rate 01/05/19 98.7 98 16 91/50 (45) 94 Room Air 14:35 Intake and Output 01/04/19 01/04/19 01/05/19 1515:00 23:00 07:00 IntakeIntake Total 360 ml OutputOutput Total 200 ml BalanceBalance 360 ml -200 ml Medications Medication Current Medications IV Flush (NS 3 ml) 3 ml PER PROTOCOL IV ; Start 12/31/18 at 16:00 Ondansetron HCl (Zofran Inj) 4 mg Q6H PRN IV NAUSEA/VOMITING Last administered on 01/04/19 18:12; Admin Dose 4 MG; Start 12/31/18 at 16:00 Acetaminophen (Tylenol Tab) 650 mg Q6H PRN PO .PAIN 1-3 OR TEMP; Start 12/31/18 at 16:00 Acetaminophen/ Hydrocodone Bitart ([place] (5/325)) 1 tab Q6H PRN PO .MOD PAIN 4- 6 Last administered on 01/02/19 08:55; Admin Dose 1 TAB; Start 12/31/18 at 16:00 Losartan Potassium (Cozaar) 25 mg BID PO Last administered on 01/05/19 08:14; Admin Dose 25 MG; Start 12/31/18 at 21:00 Chlordiazepoxide (Librium) 25 mg TID PO Last administered on 01/05/19 12:21; Admin Dose 25 MG; Start 12/31/18 at 21:00 Lorazepam (Ativan) 1 mg Q2H PRN IV Alcholol withdrawal delirium; Start 12/31/18 at 16:00 Thiamine HCl (Vitamin B1) 100 mg DAILY PO Last administered on 01/05/19 08:13; Admin Dose 100 MG; Start 01/01/19 at 09:00 Multivitamins Therapeutic (Theragran) 1 tab DAILY PO Last administered on 01/05/19 08:13; Admin Dose 1 TAB; Start 01/01/19 at 09:00 Folic Acid (Folic Acid) 1 mg DAILY PO Last administered on 01/05/19 08:13; Admin Dose 1 MG; Start 01/01/19 at 09:00 Hydrocortisone (Hydrocortisone 1% Cr) 1 applic BID TOP Last administered on 01/05/19 08:14; Admin Dose 1 APPLIC; Start 01/01/19 at 09:00 Diphenhydramine HCl (Benadryl) 50 mg Q6H PRN PO ITCHING Last administered on 01/03/19at 06:10; Admin Dose 50 MG; Start 01/02/19 at 15:00 Famotidine (Pepcid) 20 mg HS PO Last administered on 01/04/19at 20:14; Admin Dose 20 MG; Start 01/02/19 at 21:00 Docusate Sodium (Colace) 100 mg BID PRN PO CONSTIPATION; Start 01/02/19 at 15:0 0 Senna/Docusate Sodium (Senokot-S) 2 tab HS PO Last administered on 01/04/19at 20:14; Admin Dose 2 TAB; Start 01/03/19 at 21:00 Miscellaneous Information (* Miscellaneous Pharmacy Order) PATIENT HAS HIS OWN ... Q24H XX ; Start 01/04/19 at 16:00 Calcium Carbonate (Tums) 2,000 mg Q6H PRN PO HEARTBURN; Start 01/05/19 at 17:00 Sucralfate (Carafate) 1 gm QID PO Last administered on 01/05/19at 16:39; Admin Dose 1 GM; Start 01/05/19 at 17:00 DHAVAL REYNOSO MD Jan 05, 2019 17:49
[2019-01-05 20:20] VITALS: BP 96/52; PULSE 93; RESP 18
[2019-01-05] MEDS: FAMOTIDINE 20 MG TAB PO SCH (20:26)
[2019-01-05] MEDS: SENNA/DOCUSATE NA (8.6MG/50MG) TAB PO SCH (20:26)
[2019-01-05 21:00] VITALS: BP 101/61
[2019-01-06 02:15] VITALS: BP 109/61; PULSE 66; RESP 18
[2019-01-06 08:42] VITALS: BP 112/61; PULSE 80; RESP 18
[2019-01-06] MEDS: HYDROCORTISONE 1% 28 GM CR TOP SCH ×2 (09:00→21:16)
[2019-01-06] MEDS: CHLORDIAZEPOXIDE 25 MG CAP PO SCH ×3 (09:00→21:15)
[2019-01-06] MEDS: HYDROCODONE/APAP (5/325) TAB PO PRN (09:15)
[2019-01-06] MEDS: THIAMINE 100 MG TAB PO SCH (11:18)
[2019-01-06] MEDS: MULTIVITAMINS THERAPEUTIC TAB PO SCH (11:19)
[2019-01-06] MEDS: SUCRALFATE 1 GM TAB PO SCH ×4 (11:19→21:15)
[2019-01-06] MEDS: CALCIUM CARBONATE 500 MG CHEW TAB PO PRN ×2 (11:28→22:03)
[2019-01-06] MEDS: LOSARTAN 25 MG TAB PO SCH ×2 (11:30→21:16)
[2019-01-06] MEDS: FOLIC ACID 1 MG TAB PO SCH (11:30)
[2019-01-06] MEDS: ONDANSETRON (ODT) 4 MG TAB ODT PRN (11:31)
[2019-01-06 14:00] VITALS: BP 110/72; PULSE 76; RESP 20
--- NOTE | 2019-01-06 14:18 | PN ---
Date/Time of Note Date/Time of Note DATE: 01/06/19 TIME: 14:17 Assessment/Plan VTE Prophylaxis Risk score (from Ns)>0 risk: 3 SCD applied (from Ns): Yes SCD contraindicated: low risk/ambulating Pharmacological prophylaxis: NA/contraindicated Pharm contraindication: blood coag disorder Lines/Catheters IV [facility] Saline Lock Urinary Cath still in place: No Assessment/Plan Hospital Course Hospitalist coverage/hospital course -Admitted and evaluated for back leg pain. Probably due to acute back strain. Imaging showing old L4 fracture. For completion sake an MRI can be done here or as an outpatient. In the meantime conservative care with PT and pain control. Patient is stable and fit for discharge to [facility] if he agrees otherwise home with outpatient therapy. He was counseled regarding alcoholism. Recommend outpatient referral (if feasible) to GI to discuss potential cirrhosis/chronic liver disease sequelae. Prognosis challenging. Addendum: Discharge to snf. MRI results noted. Patient/snf provided with CD. Outpt NS consult, better if he avoids etoh. A/P 1. Back leg pain/ acute back strain, stable observe. Cont PT @ snf. 2. Chr alcoholism acute on chronic, mod stable cont thiamine. Possible cerebellar degeneration. 3. Ftt, homeless consider placement. May have a [facility] or snf in [place] that may accept him 4. Major depression 5. Tobacco abuse 6. Abn LFTs, consider imaging/ultrasound down the line. Likely chronic liver dz sequela 7. Chronic liver disease sequela, with pancytopenia possible coagulopathy 8. COPD? 9. Hypertension 10. Itching rash possibly due to hyperbilirubinemia no evidence of infestation scabies pathology negative 11. L4 compression fracture subacute. Continue supportive care. Spoke with neurosurgery; plan: Conservative management 12. History of C2 fracture and fusion via secondary healing? Subjective: 01/02 events noted 01/03: No events. No fever or incontinence. 01/04: No events no distress 01/05: No events. Unable to maintain IV access. Pending sniff placement. 01/06: Pending sniff acceptance Objective: Vital signs stable Physical exam No pallor icterus Regular Clear Benign No edema; Result Diagram: 01/03/19 0539 01/03/19 0539 Exam/Review of Systems Exam Vitals Vital Signs Date Temp Pulse Resp B/P (MAP) Pulse Ox O2 O2 Flow FiO2 Time Delivery Rate 01/06/19 98.6 80 18 112/61 94 08:42 (78) 01/05/19 Room Air 14:35 Intake and Output 01/05/19 01/05/19 01/06/19 1515:00 23:00 07:00 IntakeIntake Total 770 ml 1000 ml BalanceBalance 770 ml 1000 ml Medications Medication Current Medications IV Flush (NS 3 ml) 3 ml PER PROTOCOL IV ; Start 12/31/18 at 16:00 Ondansetron HCl (Zofran Inj) 4 mg Q6H PRN IV NAUSEA/VOMITING Last administered on 01/04/19 18:12; Admin Dose 4 MG; Start 12/31/18 at 16:00 Acetaminophen (Tylenol Tab) 650 mg Q6H PRN PO .PAIN 1-3 OR TEMP; Start 12/31/18 at 16:00 Acetaminophen/ Hydrocodone Bitart ([place] (5/325)) 1 tab Q6H PRN PO .MOD PAIN 4- 6 Last administered on 01/06/19 09:15; Admin Dose 1 TAB; Start 12/31/18 at 16:00 Losartan Potassium (Cozaar) 25 mg BID PO Last administered on 01/06/19 11:30; Admin Dose 25 MG; Start 12/31/18 at 21:00 Chlordiazepoxide (Librium) 25 mg TID PO Last administered on 01/06/19 11:31; Admin Dose 25 MG; Start 12/31/18 at 21:00 Lorazepam (Ativan) 1 mg Q2H PRN IV Alcholol withdrawal delirium; Start 12/31/18 at 16:00 Thiamine HCl (Vitamin B1) 100 mg DAILY PO Last administered on 01/06/19 11:18; Admin Dose 100 MG; Start 01/01/19 at 09:00 Multivitamins Therapeutic (Theragran) 1 tab DAILY PO Last administered on 01/06/19 11:19; Admin Dose 1 TAB; Start 01/01/19 at 09:00 Folic Acid (Folic Acid) 1 mg DAILY PO Last administered on 01/06/19 11:30; Admin Dose 1 MG; Start 01/01/19 at 09:00 Hydrocortisone (Hydrocortisone 1% Cr) 1 applic BID TOP Last administered on 2/28/19at 20:28; Admin Dose 1 APPLIC; Start 01/01/19 at 09:00 Diphenhydramine HCl (Benadryl) 50 mg Q6H PRN PO ITCHING Last administered on 01/03/19at 06:10; Admin Dose 50 MG; Start 01/02/19 at 15:00 Famotidine (Pepcid) 20 mg HS PO Last administered on 01/05/19 20:26; Admin Dose 20 MG; Start 01/02/19 at 21:00 Docusate Sodium (Colace) 100 mg BID PRN PO CONSTIPATION; Start 01/02/19 at 15:0 0 Senna/Docusate Sodium (Senokot-S) 2 tab HS PO Last administered on 01/05/19 20:26; Admin Dose 2 TAB; Start 01/03/19 at 21:00 Miscellaneous Information (* Miscellaneous Pharmacy Order) PATIENT HAS HIS OWN ... Q24H XX ; Start 01/04/19 at 16:00 Calcium Carbonate (Tums) 2,000 mg Q6H PRN PO HEARTBURN Last administered on 01/06/19 11:28; Admin Dose 2,000 MG; Start 01/05/19 at 17:00 Sucralfate (Carafate) 1 gm QID PO Last administered on 01/06/19 11:19; Admin Dose 1 GM; Start 01/05/19 at 17:00 Ondansetron HCl (Zofran Odt) 4 mg Q6H PRN ODT NAUSEA Last administered on 01/06/19 11:31; Admin Dose 4 MG; Start 01/05/19 at 18:00 DHAVAL REYNOSO MD Jan 06, 2019 14:18
[2019-01-06 20:20] VITALS: BP 100/56; PULSE 87; RESP 18
[2019-01-06] MEDS: FAMOTIDINE 20 MG TAB PO SCH (21:15)
[2019-01-06] MEDS: SENNA/DOCUSATE NA (8.6MG/50MG) TAB PO SCH (21:15)
[2019-01-07 02:17] VITALS: BP 119/64; PULSE 80; RESP 18
[2019-01-07 08:00] VITALS: BP 140/64; PULSE 92; RESP 18
[2019-01-07] MEDS: SUCRALFATE 1 GM TAB PO SCH ×4 (08:44→20:13)
[2019-01-07] MEDS: FOLIC ACID 1 MG TAB PO SCH (08:44)
[2019-01-07] MEDS: MULTIVITAMINS THERAPEUTIC TAB PO SCH (08:44)
[2019-01-07] MEDS: THIAMINE 100 MG TAB PO SCH (08:44)
[2019-01-07] MEDS: CHLORDIAZEPOXIDE 25 MG CAP PO SCH ×3 (08:44→20:13)
[2019-01-07] MEDS: HYDROCORTISONE 1% 28 GM CR TOP SCH ×2 (08:45→20:17)
[2019-01-07] MEDS: LOSARTAN 25 MG TAB PO SCH ×2 (08:45→20:14)
[2019-01-07] MEDS: CALCIUM CARBONATE 500 MG CHEW TAB PO PRN (12:27)
[2019-01-07 14:00] VITALS: BP 105/62; PULSE 79
--- NOTE | 2019-01-07 15:41 | PN ---
Date/Time of Note Date/Time of Note DATE: 01/07/19 TIME: 15:38 Assessment/Plan VTE Prophylaxis Risk score (from Ns)>0 risk: 3 SCD applied (from Ns): Yes Pharmacological prophylaxis: NA/contraindicated Pharm contraindication: blood coag disorder, surgical contra Lines/Catheters IV Catheter Type (from Nrsg): No IV access Urinary Cath still in place: No Assessment/Plan Hospital Course Hospitalist coverage/hospital course -Admitted and evaluated for back leg pain. Probably due to acute back strain. Imaging showing old L4 fracture. For completion sake an MRI can be done here or as an outpatient. In the meantime conservative care with PT and pain control. Patient is stable and fit for discharge to [facility] if he agrees otherwise home with outpatient therapy. He was counseled regarding alcoholism. Recommend outpatient referral (if feasible) to GI to discuss potential cirrhosis/chronic liver disease sequelae. Prognosis challenging. Addendum: Discharge to snf. MRI results noted. Patient/snf provided with CD. Outpt NS consult, better if he avoids etoh. A/P 1. Back leg pain/ acute back strain, stable observe. Cont PT @ snf. 2. Chr alcoholism acute on chronic, mod stable cont thiamine. Possible cerebellar degeneration. 3. Ftt, homeless consider placement. May have a detention or snf in [place] that may accept him 4. Major depression 5. Tobacco abuse 6. Abn LFTs, consider imaging/ultrasound. Likely chronic liver dz sequela 7. Chronic liver disease sequela, with pancytopenia possible coagulopathy. Does not need Lovenox. 8. COPD? 9. Hypertension 10. Itching rash possibly due to hyperbilirubinemia: No evidence of infestation scabies pathology negative 11. L4 compression fracture subacute. Continue supportive care. Spoke with neurosurgery; plan: Conservative management 12. History of C2 fracture and fusion via secondary healing? Subjective: 01/02 events noted 01/03: No events. No fever or incontinence. 01/04: No events no distress 01/05: No events. Unable to maintain IV access. Pending sniff placement. 01/06: Pending sniff acceptance 01/07: No events. Occasional itching. Objective: Vital signs stable Physical exam No pallor icterus Regular Clear Benign No edema; DISPOSITION: SNF when bed available. Result Diagram: 01/03/19 0539 01/03/1939 Exam/Review of Systems Exam Vitals Vital Signs Date Temp Pulse Resp B/P (MAP) Pulse Ox O2 O2 Flow FiO2 Time Delivery Rate 01/07/19 97.8 79 105/62 14:00 (76) 01/07/19 18 96 08:00 01/05/19 Room Air 14:35 Intake and Output 01/06/19 01/06/19 01/07/19 1515:00 23:00 07:00 IntakeIntake Total 120 ml 940 ml 1200 ml OutputOutput Total 650 ml 200 ml BalanceBalance 120 ml 290 ml 1000 ml Medications Medication Current Medications IV Flush (NS 3 ml) 3 ml PER PROTOCOL IV ; Start 12/31/18 at 16:00 Ondansetron HCl (Zofran Inj) 4 mg Q6H PRN IV NAUSEA/VOMITING Last administered on 01/04/19 18:12; Admin Dose 4 MG; Start 12/31/18 at 16:00 Acetaminophen (Tylenol Tab) 650 mg Q6H PRN PO .PAIN 1-3 OR TEMP; Start 12/31/18 at 16:00 Acetaminophen/ Hydrocodone Bitart ([place] (5/325)) 1 tab Q6H PRN PO .MOD PAIN 4- 6 Last administered on 01/06/19 09:15; Admin Dose 1 TAB; Start 12/31/18 at 16:00 Losartan Potassium (Cozaar) 25 mg BID PO Last administered on 01/07/19 08:45; Admin Dose 25 MG; Start 12/31/18 at 21:00 Chlordiazepoxide (Librium) 25 mg TID PO Last administered on 01/07/19 12:27; Admin Dose 25 MG; Start 12/31/18 at 21:00 Lorazepam (Ativan) 1 mg Q2H PRN IV Alcholol withdrawal delirium; Start 12/31/18 at 16:00 Thiamine HCl (Vitamin B1) 100 mg DAILY PO Last administered on 01/07/19 08:44; Admin Dose 100 MG; Start 01/01/19 at 09:00 Multivitamins Therapeutic (Theragran) 1 tab DAILY PO Last administered on 01/07/19 08:44; Admin Dose 1 TAB; Start 01/01/19 at 09:00 Folic Acid (Folic Acid) 1 mg DAILY PO Last administered on 01/07/19 08:44; Admi n Dose 1 MG; Start 01/01/19 at 09:00 Hydrocortisone (Hydrocortisone 1% Cr) 1 applic BID TOP Last administered on 01/07/19 08:45; Admin Dose 1 APPLIC; Start 01/01/19 at 09:00 Diphenhydramine HCl (Benadryl) 50 mg Q6H PRN PO ITCHING Last administered on 01/03/19 06:10; Admin Dose 50 MG; Start 01/02/19 at 15:00 Famotidine (Pepcid) 20 mg HS PO Last administered on 01/06/19 21:15; Admin Dose 20 MG; Start 01/02/19 at 21:00 Docusate Sodium (Colace) 100 mg BID PRN PO CONSTIPATION; Start 01/02/19 at 15:00 Senna/Docusate Sodium (Senokot-S) 2 tab HS PO Last administered on 01/06/19 21:15; Admin Dose 2 TAB; Start 01/03/19 at 21:00 Miscellaneous Information (* Miscellaneous Pharmacy Order) PATIENT HAS HIS OWN ... Q24H XX ; Start 01/04/19 at 16:00 Calcium Carbonate (Tums) 2,000 mg Q6H PRN PO HEARTBURN Last administered on 01/07/19 12:27; Admin Dose 2,000 MG; Start 01/05/19 at 17:00 Sucralfate (Carafate) 1 gm QID PO Last administered on 01/07/19 12:27; Admin Dose 1 GM; Start 01/05/19 at 17:00 Ondansetron HCl (Zofran Odt) 4 mg Q6H PRN ODT NAUSEA Last administered on 01/06/19 11:31; Admin Dose 4 MG; Start 01/05/19 at 18:00 DHAVAL REYNOSO MD Jan 07, 2019 15:41
[2019-01-07] MEDS: ONDANSETRON (ODT) 4 MG TAB ODT PRN (18:09)
[2019-01-07 20:00] VITALS: BP 122/74; PULSE 89; RESP 19
[2019-01-07] MEDS: SENNA/DOCUSATE NA (8.6MG/50MG) TAB PO SCH (20:14)
[2019-01-07] MEDS: FAMOTIDINE 20 MG TAB PO SCH (20:14)
[2019-01-08 07:52] VITALS: BP 132/74; PULSE 75; RESP 20
[2019-01-08] MEDS: SUCRALFATE 1 GM TAB PO SCH ×4 (10:19→21:13)
[2019-01-08] MEDS: FOLIC ACID 1 MG TAB PO SCH (10:19)
[2019-01-08] MEDS: CHLORDIAZEPOXIDE 25 MG CAP PO SCH ×3 (10:20→21:14)
[2019-01-08] MEDS: THIAMINE 100 MG TAB PO SCH (10:20)
[2019-01-08] MEDS: MULTIVITAMINS THERAPEUTIC TAB PO SCH (10:20)
[2019-01-08] MEDS: LOSARTAN 25 MG TAB PO SCH ×2 (10:20→21:14)
[2019-01-08] MEDS: HYDROCORTISONE 1% 28 GM CR TOP SCH ×2 (10:20→21:21)
[2019-01-08] MEDS: HYDROCODONE/APAP (5/325) TAB PO PRN (11:16)
[2019-01-08] MEDS: CALCIUM CARBONATE 500 MG CHEW TAB PO PRN ×2 (12:51→22:18)
--- NOTE | 2019-01-08 14:07 | PN ---
Date/Time of Note Date/Time of Note DATE: 01/08/19 TIME: 14:05 Assessment/Plan VTE Prophylaxis Risk score (from Ns)>0 risk: 4 SCD applied (from Ns): Yes SCD contraindicated: low risk/ambulating Pharmacological prophylaxis: NA/contraindicated Pharm contraindication: blood coag disorder Lines/Catheters IV Catheter Type (from [facility]): No IV access Urinary Cath still in place: No Assessment/Plan Hospital Course Hospitalist coverage/hospital course -Admitted and evaluated for back leg pain. Probably due to acute back strain. Imaging showing old L4 fracture. For completion sake an MRI can be done here or as an outpatient. In the meantime conservative care with PT and pain control. Patient is stable and fit for discharge to [facility] if he agrees otherwise home with outpatient therapy. He was counseled regarding alcoholism. Recommend outpatient referral (if feasible) to GI to discuss potential cirrhosis/chronic liver disease sequelae. Prognosis challenging. Addendum: Discharge to snf. MRI results noted. Patient/snf provided with CD. Outpt NS consult, better if he avoids etoh. A/P 1. Back leg pain/ acute back strain, stable observe. Cont PT @ snf. 2. Chr alcoholism acute on chronic, mod stable cont thiamine. Possible cerebellar degeneration. 3. Ftt, homeless consider placement. May have a longterm or snf in [place] that may accept him 4. Major depression 5. Tobacco abuse 6. Abn LFTs, ultrasound results noted; tolerating diet does not require HIDA s can. Likely chronic liver dz sequela 7. Chronic liver disease sequela, with pancytopenia possible coagulopathy. Does not need Lovenox. 8. COPD? 9. Hypertension 10. Itching rash possibly due to hyperbilirubinemia: No evidence of infestation scabies pathology negative 11. L4 compression fracture subacute. Continue supportive care. Spoke with neurosurgery; plan: Conservative management 12. History of C2 fracture and fusion via secondary healing? Subjective: 01/02 events noted 01/03: No events. No fever or incontinence. 01/04: No events no distress 01/05: No events. Unable to maintain IV access. Pending sniff placement. 01/06: Pending sniff acceptance 01/07: No events. Occasional itching. 01/08: Almost went AMA overnight. Appreciate staff assistance. Patient returning to baseline wants to leave Objective: Vital signs stable PE No pallor icterus Regular Clear Benign No edema; DISPOSITION: SNF when bed available. Exam/Review of Systems Exam Vitals Vital Signs Date Temp Pulse Resp B/P (MAP) Pulse Ox O2 O2 Flow FiO2 Time Delivery Rate 01/08/19 98.0 75 20 132/74 95 07:52 (93) 01/05/19 Room Air 14:35 Intake and Output 01/07/19 01/07/19 01/08/19 1515:00 23:00 07:00 IntakeIntake Total 590 ml 240 ml BalanceBalance 590 ml 240 ml Medications Medication Current Medications IV Flush (NS 3 ml) 3 ml PER PROTOCOL IV ; Start 12/31/18 at 16:00 Ondansetron HCl (Zofran Inj) 4 mg Q6H PRN IV NAUSEA/VOMITING Last administered on 01/04/19 18:12; Admin Dose 4 MG; Start 12/31/18 at 16:00 Acetaminophen (Tylenol Tab) 650 mg Q6H PRN PO .PAIN 1-3 OR TEMP; Start 12/31/18 at 16:00 Acetaminophen/ Hydrocodone Bitart ([place] (5/325)) 1 tab Q6H PRN PO .MOD PAIN 4- 6 Last administered on 01/08/19 11:16; Admin Dose 1 TAB; Start 12/31/18 at 16:00 Losartan Potassium (Cozaar) 25 mg BID PO Last administered on 01/08/19 10:20; Admin Dose 25 MG; Start 12/31/18 at 21:00 Chlordiazepoxide (Librium) 25 mg TID PO Last administered on 01/08/19 12:46; Admin Dose 25 MG; Start 12/31/18 at 21:00 Lorazepam (Ativan) 1 mg Q2H PRN IV Alcholol withdrawal delirium; Start 12/31/18 at 16:00 Thiamine HCl (Vitamin B1) 100 mg DAILY PO Last administered on 01/08/19 10:20; Admin Dose 100 MG; Start 01/01/19 at 09:00 Multivitamins Therapeutic (Theragran) 1 tab DAILY PO Last administered on 01/08/19 10:20; Admin Dose 1 TAB; Start 01/01/19 at 09:00 Folic Acid (Folic Acid) 1 mg DAILY PO Last administered on 3/3/19at 10:19; Admin Dose 1 MG; Start 01/01/19 at 09:00 Hydrocortisone (Hydrocortisone 1% Cr) 1 applic BID TOP Last administered on 01/08/19 10:20; Admin Dose 1 APPLIC; Start 01/01/19 at 09:00 Diphenhydramine HCl (Benadryl) 50 mg Q6H PRN PO ITCHING Last administered on 01/03/19 06:10; Admin Dose 50 MG; Start 01/02/19 at 15:00 Famotidine (Pepcid) 20 mg HS PO Last administered on 01/07/19 20:14; Admin Dose 20 MG; Start 01/02/19 at 21:00 Docusate Sodium (Colace) 100 mg BID PRN PO CONSTIPATION; Start 01/02/19 at 15:00 Senna/Docusate Sodium (Senokot-S) 2 tab HS PO Last administered on 01/07/19 20:14; Admin Dose 2 TAB; Start 01/03/19 at 21:00 Miscellaneous Information (* Miscellaneous Pharmacy Order) PATIENT HAS HIS OWN ... Q24H XX ; Start 01/04/19 at 16:00 Calcium Carbonate (Tums) 2,000 mg Q6H PRN PO HEARTBURN Last administered on 01/08/19 12:51; Admin Dose 2,000 MG; Start 01/05/19 at 17:00 Sucralfate (Carafate) 1 gm QID PO Last administered on 01/08/19 12:45; Admin Dose 1 GM; Start 01/05/19 at 17:00 Ondansetron HCl (Zofran Odt) 4 mg Q6H PRN ODT NAUSEA Last administered on 01/07/19 18:09; Admin Dose 4 MG; Start 01/05/19 at 18:00 DHAVAL REYNOSO MD Jan 08, 2019 14:07
[2019-01-08 14:52] VITALS: BP 125/68; PULSE 73; RESP 18
[2019-01-08 20:00] VITALS: BP 109/58; PULSE 74; RESP 17
[2019-01-08] MEDS: FAMOTIDINE 20 MG TAB PO SCH (21:13)
[2019-01-08] MEDS: SENNA/DOCUSATE NA (8.6MG/50MG) TAB PO SCH (21:14)
[2019-01-09 01:59] VITALS: BP 107/55; PULSE 80; RESP 17
[2019-01-09] MEDS: HYDROCODONE/APAP (5/325) TAB PO PRN (04:00)
[2019-01-09 08:10] VITALS: BP 108/68; PULSE 73; RESP 20
[2019-01-09] MEDS: SUCRALFATE 1 GM TAB PO SCH ×4 (08:12→21:41)
[2019-01-09] MEDS: THIAMINE 100 MG TAB PO SCH (08:12)
[2019-01-09] MEDS: MULTIVITAMINS THERAPEUTIC TAB PO SCH (08:12)
[2019-01-09] MEDS: FOLIC ACID 1 MG TAB PO SCH (08:12)
[2019-01-09] MEDS: CHLORDIAZEPOXIDE 25 MG CAP PO SCH ×2 (08:12→13:16)
[2019-01-09] MEDS: LOSARTAN 25 MG TAB PO SCH ×2 (09:00→21:42)
[2019-01-09 10:17] VITALS: BP 98/71; RESP 20
[2019-01-09] MEDS ORDERED: LACTULOSE 30ML CUP PO ONE (11:00)
[2019-01-09] MEDS ORDERED: NA PHOSPHATE/BIPHOS 133 ML ENEMA PR ONE (11:00)
[2019-01-09] MEDS: HYDROCORTISONE 1% 28 GM CR TOP SCH ×2 (11:17→21:41)
[2019-01-09 14:43] VITALS: BP 113/64; PULSE 88; RESP 18
--- NOTE | 2019-01-09 16:18 | PN ---
Date/Time of Note Date/Time of Note DATE: 01/09/19 TIME: 16:15 Assessment/Plan VTE Prophylaxis Risk score (from Ns)>0 risk: 3 SCD applied (from Ns): Yes Pharmacological prophylaxis: NA/contraindicated Pharm contraindication: liver dx Lines/Catheters IV [facility]from [facility]): No IV access Urinary Cath still in place: No Assessment/Plan Hospital Course SUBJECTIVE: Complains of nausea. OBJECTIVE: Physical Exam General: Adequately build 63 year-old male lying in bed in no apparent distress. HEENT: Normocephalic, atraumatic. Eyes: Anicteric sclerae, conjunctivae red. ENT: Nasal septum midline, oral mucosa moist. Neck supple, no JVD noticed. Respiratory: Bilaterally diminished breath sounds. No use of accessory muscles of respiration. No adventitious breath sounds. Cardiovascular: S1, S2 heard. Regular rate and rhythm. Abdomen: Soft, nontender, and nondistended. Bowel sounds positive in all 4 quadrants. Genitourinary: Deferred. Extremities: No cyanosis, no clubbing, no edema. Peripheral pulses palpable. Neurologic: Cranial nerves II through XII grossly intact. The patient is awake, alert, and oriented. Skin: Normal skin turgor. Clustered erythematous rashes on the upper chest wall. Labs & Vitals per chart ASSESSMENT & PLAN 63-year-old male with comorbidities including hypertension, alcoholism, chronic back pain, chronic bilateral hip pain, and nicotine use. The patient was brought in by paramedics from the streets because of difficulty in ambulation. The patient was admitted to inpatient setting for further treatment and evaluation. 1. Chronic back and bilateral lower extremity pain with difficulty in ambulation -Provide adequate pain control. -Continue physical therapy evaluation. -Lumbar spine MRI showing chronic mild to moderate L1, chronic mild to moderate L2, chronic mild L3 vertebral body compression fractures. Acute/recent inferior L3 endplate infraction (fracture) is not excluded; multilevel bilateral foraminal stenosis impinging the exiting bilateral T12, right L3, bilateral for, and left L5 nerve roots -Fall precautions. 2. Hypertension. -Continue antihypertensives. 3. Pancytopenia. -Most probably secondary to underlying liver cirrhosis from alcoholic liver di sease. 4. Transaminitis with hyperbilirubinemia. -Hepatitis panel negative. -Abdominal ultrasound from 01/08/2019 showing cholelithiasis with gallbladder wall thickening and pericholecystic fluid. Obtain HIDA. 5. Failure to thrive. -Continue physical therapy evaluation. -traffic worker evaluation. 6. Alcohol intoxication. -Continue the patient on multivitamins. -Continue the patient on scheduled Librium along with as needed IV Ativan for any active DTs. 7. Nicotine use. -Smokes 5 cigarettes/day. -Cessation advised. 8. Homelessness. -traffic worker evaluation. 9. Fluids, electrolytes, and nutrition. -Regular diet. 10. DVT prophylaxis -Chemical DVT prophylaxis contraindicated because of underlying pancytopenia. 11. Plan. -Continue supportive care. -Obtain HIDA. The patient was seen in collaboration with Dr. Negron. Result Diagram: 01/09/1942801/09/19428 Results 24hrs Laboratory Tests Test 01/09/19 04:29 White Blood Count 2.0 #L Red Blood Count 4.17 L Hemoglobin 12.8 L Hematocrit 39.6 L Mean Corpuscular Volume 95.0 Mean Corpuscular Hemoglobin 30.7 Mean Corpuscular Hemoglobin Concent 32.3 Red Cell Distribution Width 17.1 H Platelet Count 86 #L Mean Platelet Volume 9.6 Immature Granulocytes % 0.500 H Neutrophils % 39.4 Lymphocytes % 44.8 Monocytes % 12.3 H Eosinophils % 2.0 Basophils % 1.0 Nucleated Red Blood Cells % 0.0 Immature Granulocytes # 0.010 Neutrophils # 0.8 L Lymphocytes # 0.9 Monocytes # 0.3 Eosinophils # 0.0 Basophils # 0.0 Nucleated Red Blood Cells # 0.0 Sodium Level 140 Potassium Level 4.3 Chloride Level 104 Carbon Dioxide Level 32 H Anion Gap 4 L Blood Urea Nitrogen 18 Creatinine 0.72 Est Glomerular Filtrat Rate mL/min > 60 Glucose Level 87 Calcium Level 9.4 Total Bilirubin 0.6 Direct Bilirubin 0.00 Indirect Bilirubin 0.6 Aspartate Amino Transf (AST/SGOT) 155 H Alanine Aminotransferase (ALT/SGPT) 112 H Alkaline Phosphatase 78 Total Protein 6.3 Albumin 3.4 Globulin 2.90 Albumin/Globulin Ratio 1.17 Exam/Review of Systems Exam Vitals Vital Signs Date Temp Pulse Resp B/P (MAP) Pulse Ox O2 O2 Flow FiO2 Time Delivery Rate 01/09/19 98.2 88 18 113/64 93 Room Air 14:43 (80) Intake and Output 301/08/19 01/09/19 1515:00 23:00 07:00 IntakeIntake Total 2480 ml 100 ml OutputOutput Total 500 ml BalanceBalance 1980 ml 100 ml Results Results 24hrs Laboratory Tests Test 01/09/19 04:29 White Blood Count 2.0 #L Red Blood Count 4.17 L Hemoglobin 12.8 L Hematocrit 39.6 L Mean Corpuscular Volume 95.0 Mean Corpuscular Hemoglobin 30.7 Mean Corpuscular Hemoglobin Concent 32.3 Red Cell Distribution Width 17.1 H Platelet Count 86 #L Mean Platelet Volume 9.6 Immature Granulocytes % 0.500 H Neutrophils % 39.4 Lymphocytes % 44.8 Monocytes % 12.3 H Eosinophils % 2.0 Basophils % 1.0 Nucleated Red Blood Cells % 0.0 Immature Granulocytes # 0.010 Neutrophils # 0.8 L Lymphocytes # 0.9 Monocytes # 0.3 Eosinophils # 0.0 Basophils # 0.0 Nucleated Red Blood Cells # 0.0 Sodium Level 140 Potassium Level 4.3 Chloride Level 104 Carbon Dioxide Level 32 H Anion Gap 4 L Blood Urea Nitrogen 18 Creatinine 0.72 Est Glomerular Filtrat Rate mL/min > 60 Glucose Level 87 Calcium Level 9.4 Total Bilirubin 0.6 Direct Bilirubin 0.00 Indirect Bilirubin 0.6 Aspartate Amino Transf (AST/SGOT) 155 H Alanine Aminotransferase (ALT/SGPT) 112 H Alkaline Phosphatase 78 Total Protein 6.3 Albumin 3.4 Globulin 2.90 Albumin/Globulin Ratio 1.17 Medications Medication Current Medications IV Flush (NS 3 ml) 3 ml PER PROTOCOL IV ; Start 12/31/18 at 16:00 Ondansetron HCl (Zofran Inj) 4 mg Q6H PRN IV NAUSEA/VOMITING Last administered on 01/04/19at 18:12; Admin Dose 4 MG; Start 12/31/18 at 16:00 Acetaminophen (Tylenol Tab) 650 mg Q6H PRN PO .PAIN 1-3 OR TEMP; Start 12/31/18 at 16:00 Acetaminophen/ Hydrocodone Bitart ([place] (5/325)) 1 tab Q6H PRN PO .MOD PAIN 4- 6 Last administered on 01/09/19at 04:00; Admin Dose 1 TAB; Start 12/31/18 at 16:00 Losartan Potassium (Cozaar) 25 mg BID PO Last administered on 01/08/19 21:14; Admin Dose 25 MG; Start 12/31/18 at 21:00 Chlordiazepoxide (Librium) 25 mg TID PO Last administered on 01/09/19 13:16; Admin Dose 25 MG; Start 12/31/18 at 21:00 Lorazepam (Ativan) 1 mg Q2H PRN IV Alcholol withdrawal delirium; Start 12/31/18 at 16:00 Thiamine HCl (Vitamin B1) 100 mg DAILY PO Last administered on 01/09/19 08:12; Admin Dose 100 MG; Start 01/01/19 at 09:00 Multivitamins Therapeutic (Theragran) 1 tab DAILY PO Last administered on 9at 08:12; Admin Dose 1 TAB; Start 01/01/19 at 09:00 Folic Acid (Folic Acid) 1 mg DAILY PO Last administered on 01/09/19 08:12; Admin Dose 1 MG; Start 01/01/19 at 09:00 Hydrocortisone (Hydrocortisone 1% Cr) 1 applic BID TOP Last administered on 01/09/19 11:17; Admin Dose 1 APPLIC; Start 01/01/19 at 09:00 Diphenhydramine HCl (Benadryl) 50 mg Q6H PRN PO ITCHING Last administered on 01/03/19 06:10; Admin Dose 50 MG; Start 01/02/19 at 15:00 Famotidine (Pepcid) 20 mg HS PO Last administered on 01/08/19 21:13; Admin Dose 20 MG; Start 01/02/19 at 21:00 Docusate Sodium (Colace) 100 mg BID PRN PO CONSTIPATION; Start 01/02/19 at 15:00 Senna/Docusate Sodium (Senokot-S) 2 tab HS PO Last administered on 01/08/19 21:14; Admin Dose 2 TAB; Start 01/03/19 at 21:00 Miscellaneous Information (* Miscellaneous Pharmacy Order) PATIENT HAS HIS OWN ... Q24H XX ; Start 01/04/19 at 16:00 Calcium Carbonate (Tums) 2,000 mg Q6H PRN PO HEARTBURN Last administered on 01/08/19 22:18; Admin Dose 2,000 MG; Start 01/05/19 at 17:00 Sucralfate (Carafate) 1 gm QID PO Last administered on 01/09/19 13:16; Admin Do se 1 GM; Start 01/05/19 at 17:00 Ondansetron HCl (Zofran Odt) 4 mg Q6H PRN ODT NAUSEA Last administered on 01/07/19 18:09; Admin Dose 4 MG; Start 01/05/19 at 18:00 TOYIN QUACH NP Jan 09, 2019 16:18
[2019-01-09] MEDS ORDERED: ZOLPIDEM 5 MG TAB PO PRN (17:00)
[2019-01-09] MEDS: CALCIUM CARBONATE 500 MG CHEW TAB PO PRN (18:38)
[2019-01-09 20:00] VITALS: BP 115/58; PULSE 89; RESP 18
[2019-01-09] MEDS: SENNA/DOCUSATE NA (8.6MG/50MG) TAB PO SCH (21:41)
[2019-01-09] MEDS: FLUTICASONE 0.05% 16 GM NAS SPRAY NASAL SCH (21:42)
[2019-01-09] MEDS: FAMOTIDINE 20 MG TAB PO SCH (21:42)
[2019-01-09] MEDS: CHLORDIAZEPOXIDE 5 MG CAP PO SCH (21:44)
[2019-01-10 02:00] VITALS: BP 115/57; PULSE 84; RESP 18
--- NOTE | 2019-01-10 05:44 | PN ---
Date/Time of Note Date/Time of Note DATE: 01/10/19 TIME: 05:44 Assessment/Plan VTE Prophylaxis Risk score (from Ns)>0 risk: 3 SCD applied (from Ns): Yes Pharmacological prophylaxis: NA/contraindicated Pharm contraindication: thrombocytopenia Lines/Catheters IV Catheter Type (from [facility]): No IV access Urinary Cath still in place: No Assessment/Plan Hospital Course SUBJECTIVE: Complains of nausea. Tried to smoke a cigarette in the room. OBJECTIVE: Physical Exam General: Adequately build 63 year-old male lying in bed in no apparent distress. HEENT: Normocephalic, atraumatic. Eyes: Anicteric sclerae, conjunctivae red. ENT: Nasal septum midline, oral mucosa moist. Neck supple, no JVD noticed. Respiratory: Bilaterally diminished breath sounds. No use of accessory muscles of respiration. No adventitious breath sounds. Cardiovascular: S1, S2 heard. Regular rate and rhythm. Abdomen: Soft, nontender, and nondistended. Bowel sounds positive in all 4 quadrants. Genitourinary: Deferred. Extremities: No cyanosis, no clubbing, no edema. Peripheral pulses palpable. Neurologic: Cranial nerves II through XII grossly intact. The patient is awake, alert, and oriented. Skin: Normal skin turgor. Clustered erythematous rashes on the upper chest wall. Labs & Vitals per chart ASSESSMENT & PLAN 63-year-old male with comorbidities including hypertension, alcoholism, chronic back pain, chronic bilateral hip pain, and nicotine use. The patient was brought in by paramedics from the streets because of difficulty in ambulation. The patient was admitted to inpatient setting for further treatment and evaluation. 1. Chronic back and bilateral lower extremity pain with difficulty in ambulation -Provide adequate pain control. -Continue physical therapy evaluation. -Lumbar spine MRI showing chronic mild to moderate L1, chronic mild to moderate L2, chronic mild L3 vertebral body compression fractures. Acute/recent inferior L3 endplate infraction (fracture) is not excluded; multilevel bilateral foraminal stenosis impinging the exiting bilateral T12, right L3, bilateral for, and left L5 nerve roots -Fall precautions. 2. Hypertension. -Continue antihypertensives. 3. Pancytopenia. -Most probably secondary to underlying liver cirrhosis from alcoholic liver disease. 4. Transaminitis with hyperbilirubinemia. -Hepatitis panel negative. -Abdominal ultrasound from 01/08/2019 showing cholelithiasis with gallbladder wall thickening and pericholecystic fluid. Obtain HIDA. 5. Failure to thrive. -Continue physical therapy evaluation. -leather production worker evaluation. 6. Alcohol intoxication. -Continue the patient on multivitamins. -Continue the patient on scheduled Librium along with as needed IV Ativan for any active DTs. 7. Nicotine use. -Smokes 5 cigarettes/day. -Cessation advised. 8. Homelessness. -leather production worker evaluation. 9. Fluids, electrolytes, and nutrition. -Regular diet. 10. DVT prophylaxis -Chemical DVT prophylaxis contraindicated because of underlying pancytopenia. 11. Plan. -Continue supportive care. -Await HIDA. The patient was seen in collaboration with Dr. Negron. Result Diagram: 01/09/1942801/09/19428 Exam/Review of Systems Exam Vitals Vital Signs Date Temp Pulse Resp B/P (MAP) Pulse Ox O2 O2 Flow FiO2 Time Delivery Rate 01/10/19 97.8 84 18 115/57 95 02:00 (76) 01/09/19 Room Air 14:43 Intake and Output 01/09/19 01/09/19 01/10/19 1515:00 23:00 07:00 IntakeIntake Total 680 ml 320 ml BalanceBalance 680 ml 320 ml Medications Medication Current Medications IV Flush (NS 3 ml) 3 ml PER PROTOCOL IV ; Start 12/31/18 at 16:00 Ondansetron HCl (Zofran Inj) 4 mg Q6H PRN IV NAUSEA/VOMITING Last administered on 01/04/19at 18:12; Admin Dose 4 MG; Start 12/31/18 at 16:00 Acetaminophen (Tylenol Tab) 650 mg Q6H PRN PO .PAIN 1-3 OR TEMP; Start 12/31/18 at 16:00 Acetaminophen/ Hydrocodone Bitart (Opal (5/325)) 1 tab Q6H PRN PO .MOD PAIN 4- 6 Last administered on 01/09/19at 04:00; Admin Dose 1 TAB; Start 12/31/18 at 16:00 Losartan Potassium (Cozaar) 25 mg BID PO Last administered on 01/09/19at 21:42; Admin Dose 25 MG; Start 12/31/18 at 21:00 Lorazepam (Ativan) 1 mg Q2H PRN IV Alcholol withdrawal delirium; Start 12/31/18 at 16:00 Thiamine HCl (Vitamin B1) 100 mg DAILY PO Last administered on 01/09/19 08:12; Admin Dose 100 MG; Start 01/01/19 at 09:00 Multivitamins Therapeutic (Theragran) 1 tab DAILY PO Last administered on 01/09/19 08:12; Admin Dose 1 TAB; Start 01/01/19 at 09:00 Folic Acid (Folic Acid) 1 mg DAILY PO Last administered on 01/09/19 08:12; Admin Dose 1 MG; Start 01/01/19 at 09:00 Hydrocortisone (Hydrocortisone 1% Cr) 1 applic BID TOP Last administered on 01/09/19 21:41; Admin Dose 1 APPLIC; Start 01/01/19 at 09:00 Diphenhydramine HCl (Benadryl) 50 mg Q6H PRN PO ITCHING Last administered on 01/03/19 06:10; Admin Dose 50 MG; Start 01/02/19 at 15:00 Famotidine (Pepcid) 20 mg HS PO Last administered on 01/09/19 21:42; Admin Dose 20 MG; Start 01/02/19 at 21:00 Docusate Sodium (Colace) 100 mg BID PRN PO CONSTIPATION; Start 01/02/19 at 15:00 Senna/Docusate Sodium (Senokot-S) 2 tab HS PO Last administered on 01/09/19 21:41; Admin Dose 2 TAB; Start 01/03/19 at 21:00 Miscellaneous Information (* Miscellaneous Pharmacy Order) PATIENT HAS HIS OWN ... Q24H XX ; Start 01/04/19 at 16:00 Calcium Carbonate (Tums) 2,000 mg Q6H PRN PO HEARTBURN Last administered on 01/09/19 18:38; Admin Dose 2,000 MG; Start 01/05/19 at 17:00 Sucralfate (Carafate) 1 gm QID PO Last administered on 01/09/19 21:41; Admin Dose 1 GM; Start 01/05/19 at 17:00 Ondansetron HCl (Zofran Odt) 4 mg Q6H PRN ODT NAUSEA Last administered on 01/07/19 18:09; Admin Dose 4 MG; Start 01/05/19 at 18:00 Fluticasone Propionate (Flonase 0.05% Nasal) 1 spray BID NASAL Last administered on 01/09/19 21:42; Admin Dose 1 SPRAY; Start 01/09/19 at 21:00 Zolpidem Tartrate (Ambien) 5 mg HS MAY REPEAT X 1 PRN PO INSOMNIA; Start 01/09/19 at 17:00 Chlordiazepoxide (Librium) 10 mg TID PO Last administered on 01/09/19at 21:44; Admin Dose 10 MG; Start 01/09/19 at 21:00 TOYIN QUACH NP Jan 10, 2019 05:44
[2019-01-10 08:11] VITALS: BP 110/60; PULSE 80; RESP 18
[2019-01-10] MEDS: HYDROCORTISONE 1% 28 GM CR TOP SCH ×2 (08:14→21:03)
[2019-01-10] MEDS: CHLORDIAZEPOXIDE 5 MG CAP PO SCH ×3 (08:15→21:03)
[2019-01-10] MEDS: FLUTICASONE 0.05% 16 GM NAS SPRAY NASAL SCH ×2 (08:15→21:03)
[2019-01-10] MEDS: THIAMINE 100 MG TAB PO SCH (08:15)
[2019-01-10] MEDS: SUCRALFATE 1 GM TAB PO SCH ×4 (08:16→21:03)
[2019-01-10] MEDS: LOSARTAN 25 MG TAB PO SCH ×2 (08:16→21:07)
[2019-01-10] MEDS: MULTIVITAMINS THERAPEUTIC TAB PO SCH (08:16)
[2019-01-10] MEDS: FOLIC ACID 1 MG TAB PO SCH (08:16)
[2019-01-10] MEDS: CALCIUM CARBONATE 500 MG CHEW TAB PO PRN (19:30)
[2019-01-10 20:00] VITALS: BP 121/58; PULSE 86; RESP 18
[2019-01-10] MEDS: FAMOTIDINE 20 MG TAB PO SCH (21:03)
[2019-01-10] MEDS: SENNA/DOCUSATE NA (8.6MG/50MG) TAB PO SCH (21:03)
[2019-01-11] MEDS: HYDROCODONE/APAP (5/325) TAB PO PRN ×2 (01:32→13:32)
[2019-01-11 02:00] VITALS: BP 132/82; PULSE 92; RESP 18
[2019-01-11 07:55] VITALS: BP 106/56; PULSE 69; RESP 16
[2019-01-11] MEDS: LOSARTAN 25 MG TAB PO SCH (08:54)
[2019-01-11] MEDS: CHLORDIAZEPOXIDE 5 MG CAP PO SCH (08:54)
[2019-01-11] MEDS: SUCRALFATE 1 GM TAB PO SCH ×2 (08:54→13:32)
[2019-01-11] MEDS: MULTIVITAMINS THERAPEUTIC TAB PO SCH (08:54)
[2019-01-11] MEDS: THIAMINE 100 MG TAB PO SCH (08:55)
[2019-01-11] MEDS: FLUTICASONE 0.05% 16 GM NAS SPRAY NASAL SCH (08:55)
[2019-01-11] MEDS: HYDROCORTISONE 1% 28 GM CR TOP SCH (08:55)
[2019-01-11] MEDS: FOLIC ACID 1 MG TAB PO SCH (08:55)
[2019-01-11] MEDS ORDERED: LOSA25TA2 PO (10:43)
[2019-01-11] MEDS ORDERED: FOLI-49 PO (10:46)
[2019-01-11] MEDS ORDERED: THIA100T56 PO (10:46)
[2019-01-11] MEDS ORDERED: MULTI PO (10:46)
--- NOTE | 2019-01-11 11:12 | PN ---
Assessment/Plan VTE Prophylaxis Risk score (from Nsg)>0 risk: 3 Lines/Catheters IV Catheter Type (from Nrsg): No IV access Assessment/Plan Result Diagram: 01/11/19 0448 01/11/19 0448 Results 24hrs Exam/Review of Systems Exam Vitals Results Results 24hrs Medications Medication TOYIN QUACH NP Jan 11, 2019 11:12
[2019-01-11] MEDS ORDERED: CHLORDIAZEPOXIDE 5 MG CAP PO SCH (13:00)
[2019-01-11 14:41] VITALS: BP 100/82; PULSE 86; RESP 18
--- NOTE | 2019-01-11 15:52 | DS ---
Date/Time of Note Date/Time of Note DATE: 01/11/19 TIME: 15:48 Discharge Summary Admission/Discharge Info Admit Date/Time Jan 01, 2019 at 09:32 Discharge Date/Time Jan 11, 2019 at 15:00 Discharge Diagnosis 1. Degenerative disc disease of the lumbar spine. 2. Hypertension. 3. Pancytopenia. 4. Alcoholic liver disease. 5. Cholelithiasis. 6. Failure to thrive. 7. Alcohol abuse. 8. Nicotine use. 9. Homelessness. Patient Condition: Stable Procedures Lumbar Spine MRI IMPRESSION: 1. Chronic mild to moderate L1, chronic mild to moderate L2, chronic mild L3 vertebral body compression fractures. Acute / recent inferior L3 endplate infraction (fracture) is not excluded. 2. Multilevel bilateral foraminal stenosis impinging the exiting bilateral T12, right L3, bilateral for, and left L5 nerve roots as detailed above. Nuclear Medicine Hepatobiliary Scan IMPRESSION: 1. Negative hepatobiliary scan. There is normal filling of the gallbladder. 2. Patent common bile duct with normal visualization of the small bowel. Hx of Present Illness Reason for admission: Brought in by paramedics because of bilateral hip pain that is getting worse and inability to walk. This is a 63-year-old male with past medical history of hypertension currently not taking any antihypertensives. The patient verbalized that [id number] close to [facility]. He went out of the [id number] to have some food and he lost his way to return back to the board and care. He kept on walking to go to the nearest emergency room. However, he cannot make it. Therefore, he called the paramedics to bring him to the nearest emergency room. The patient was recently living in a motel for the past 4 days and he ran out of his money. Therefore, he was not eating anything recently. However, he managed to drink 1 can of beer on 12/31/2018. The patient was complaining of rashes on his back and upper chest wall with itching to the rash on the back. The patient denied any fevers, chills, nausea, vomiting, abdominal pain, diarrhea, hematuria, hematochezia, melena. In the emergency room, the patient had a blood alcohol level of 124. He also had underlying transaminitis with hyperbilirubinemia. He was noticed to have underlying pancytopenia. Hospital Course The patient was admitted to inpatient setting for further evaluation. The patient's chronic back pain and had difficulty ambulation was extensively evaluated. The patient's lumbar spine MRI was showing chronic mild to moderate L1, chronic mild to moderate L2, chronic mild L3 vertebral body compression fracture along with acute/recent inferior L3 endplate infarction (fracture) not excluded with bilateral multilevel foraminal stenosis. The patient needs these findings to be addressed in the near future. Therefore, insurance authorization was obtained for outpatient neurosurgical follow-up. The patient did not have any evidence of any acute findings including any saddle anesthesia, urinary or stool incontinence, etc. The patient worked with physical therapy and the patient's gait and strength improved gradually. Patient has underlying hypertension. The patient was started on antihypertensives. He was noticed to have pancytopenia. This could most probably secondary to his underlying alcoholic liver disease. The patient underwent a liver ultrasound that was showing fatty infiltration of the liver. The patient's hepatitis panel was negative. The patient also had evidence of underlying transaminitis with hyperbilirubinemia that improved throughout the hospital course. The patient's gallbladder ultrasound was showing cholelithiasis. The patient underwent a HIDA scan that was negative. The patient had evidence of alcohol intoxication. The patient was started on multivitamins. He was started on a tapering dose of Librium along with IV Ativan for any active delirium tremens. A the patient is a nicotine user. The patient was advised on nicotine cessation. The patient is homeless and had evidence of failure to thrive. Therefore a, social work instructor was also involved in the patient's case. Once the patient was stable, the patient was transferred to an outpatient recuperative center. Home health was authorized by the patient's insurance for further rehabilitation. The patient had a stable, but prolonged hospital course because of the difficulty in discharging the patient to a safe place. The patient was seen in collaboration with Dr. Negron. Home Meds Active Scripts Thiamine* (Vitamin B-1*) 100 Mg Tablet, 100 MG PO DAILY, #30 TAB Prov:TOYIN QUACH ENTREPRENEUR 01/11/19 Multivitamins* (Theragran*) 1 Tab Tab, 1 TAB PO DAILY, #30 TAB Prov:TOYIN QUACH ENTREPRENEUR 01/11/19 Folic Acid* (Folic Acid*) 1 Mg Tablet, 1 MG PO DAILY, #30 TAB Prov:TOYIN QUACH NP 01/11/19 Losartan Potassium* (Cozaar*) 25 Mg Tablet, 25 MG PO BID, #60 TAB Prov:TOYIN QUACH NP 01/11/19 Hydrocortisone-Aloe Vera (Hydrocortisone-Aloe Vera) 1% - 30 Gm Cream.gm., 1 APPLIC TOP BID for 14 Days Prov:DHAVAL REYNOSO MD 01/03/19 Acetaminophen* (Tylenol*) 325 Mg Tablet, 650 MG PO Q6H PRN for .PAIN 1-3 OR TEMP for 7 Days, TAB Prov:DHAVAL REYNOSO MD 01/03/19 Follow-up Plan appt primary 1wk Primary Care Provider Not On Staff Doctor Time spent on discharge: > 30 minutes Pending Labs Laboratory Tests Test 01/11/19 04:48 White Blood Count 1.4 10^3/ul (4.8-10.8) Red Blood Count 3.66 10^6/ul (4.70-6.10) Hemoglobin 11.3 g/dl (14.0-18.0) Hematocrit 34.7 % (42.0-52.0) Mean Corpuscular Volume 94.8 fl (82.0-101.0) Mean Corpuscular Hemoglobin 30.9 pg (29.0-33.0) Mean Corpuscular Hemoglobin Concent 32.6 g/dl (32.0-37.0) Red Cell Distribution Width 16.6 % (11.5-14.5) Platelet Count 86 10^3/UL (140-415) Mean Platelet Volume 10.5 fl (7.4-10.4) Immature Granulocytes % 2.800 % (0.001-0.429) Neutrophils % 25.6 % (39.0-77.0) Lymphocytes % 51.8 % (15.0-51.0) Monocytes % 17.0 % (0.0-11.0) Eosinophils % 2.1 % (0.0-7.0) Basophils % 0.7 % (0.0-2.0) Nucleated Red Blood Cells % 0.0 /100WBC (0.0-0.0) Immature Granulocytes # 0.040 10^3/ul (0.0-0.031) Neutrophils # 0.4 10^3/ul (1.6-7.5) Lymphocytes # 0.7 10^3/ul (0.8-2.9) Monocytes # 0.2 10^3/ul (0.3-0.9) Eosinophils # 0.0 10^3/ul (0.0-0.5) Basophils # 0.0 10^3/ul (0.0-0.1) Nucleated Red Blood Cells # 0.0 10^3/ul (0.0-0.0) Sodium Level 142 mmol/L (135-144) Potassium Level 4.0 mmol/L (3.5-5.1) Chloride Level 107 mmol/L (97-110) Carbon Dioxide Level 30 mmol/L (21-31) Anion Gap 5 (5-13) Blood Urea Nitrogen 12 mg/dl (7-20) Creatinine 0.66 mg/dl (0.61-1.24) Est Glomerular Filtrat Rate mL/min > 60 mL/min (>60) Glucose Level 93 mg/dl (70-220) Calcium Level 9.0 mg/dl (8.4-10.2) Phosphorus Level 3.9 mg/dl (2.5-4.9) Magnesium Level 1.8 mg/dl (1.7-2.5) Total Bilirubin 0.4 mg/dl (0.2-1.3) Direct Bilirubin 0.00 mg/dl (0.00-0.20) Indirect Bilirubin 0.4 mg/dl (0-1.1) Aspartate Amino Transf (AST/SGOT) 98 IU/L (15-46) Alanine Aminotransferase (ALT/SGPT) 84 IU/L (13-69) Alkaline Phosphatase 63 IU/L (42-121) Total Protein 5.6 g/dl (6.1-8.1) Albumin 2.9 g/dl (3.3-4.9) Globulin 2.70 g/dl (1.3-3.2) Albumin/Globulin Ratio 1.07 TOYIN QUACH NP Jan 11, 2019 15:52
== END 2019-01-11 15:00 | disposition home health service (06) | DRG 552 ==
LOC: E/R 11:55 → PP2 14:22 → CANRESERV 15:46 → OBSVTOIN 01-01 09:32 → PP2 01-08 20:45
PROVIDERS: ADMIT Internal Medicine; ATTEND Internal Medicine
PROC: 3E0234Z Introduction of Serum, Toxoid and Vaccine into Muscle, Percutaneous Approach (ICD-10-PCS; principal; 2019-01-02)
DX: M51.36 Other intervertebral disc degeneration, lumbar region (principal); D61.818 Other pancytopenia; M79.662 Pain in left lower leg; M79.661 Pain in right lower leg; R62.7 Adult failure to thrive; Z68.21 Body mass index [BMI] 21.0-21.9, adult; I10 Essential (primary) hypertension; F17.210 Nicotine dependence, cigarettes, uncomplicated; G89.29 Other chronic pain; K70.30 Alcoholic cirrhosis of liver without ascites; Z59.0 Homelessness; F10.229 Alcohol dependence with intoxication, unspecified; F32.9 Major depressive disorder, single episode, unspecified; Z23 Encounter for immunization; L29.9 Pruritus, unspecified; S39.012A Strain of muscle, fascia and tendon of lower back, initial encounter; M48.56XD Collapsed vertebra, not elsewhere classified, lumbar region, subsequent encounter for fracture with routine healing; Z98.1 Arthrodesis status; K80.20 Calculus of gallbladder without cholecystitis without obstruction; M48.061 Spinal stenosis, lumbar region without neurogenic claudication; Z86.73 Personal history of transient ischemic attack (TIA), and cerebral infarction without residual deficits; X58.XXXA Exposure to other specified factors, initial encounter
CPT/HCPCS: 36415; 71045; 72100; 72148; 76705; 78226; 80048; 80053; 80061; 80307; 81001; 82105; 83036; 83735; 84100; 84443; 85025; 85610; 85730; 86703; 86704; 86709; 86803; 87081; 87340; 90686; 97116; 97161; 97530; 99285; G0378; A9537; J2405